=== PATIENT | female | born 1960 | race Caucasian/White ===

== ENCOUNTER 2020-10-18 09:36 | Inpatient (IN) | payer MEDICARE ==
[~2020-10-18] VITALS: Ht 154.9 cm; Wt 79.4 kg
--- NOTE | ~2020-10-18 | HEMODYNAMI ---
PATIENT:CASANDRA SAAVEDRA MEDICAL RECORD: [id number] : 64 [facility] [id number] ADMISSION DATE: 10/18/20 Generatedon:111:05 Patient name: CASANDRA SAAVEDRA Patient #: [id number] SSN: : 1960 Date of study: 10/24/2020 Page: Of Hemodynamic Procedure Report Patient Data Patient Demographics Procedure consent was obtained First Name: CASANDRA Gender: Female Last Name: KERI : 1960 Patient #: [id number] Age: 60 year(s) Race: Unknown Additional ID: [id number] Contact details [address]: [address] [place] [address] State: [place] City: [place] Zip code: [address] Past Medical History Allergies Allergen Reaction Date Comments Reported Other allergy 10/24/2020 metformin, diphenhydramine Admission Admission Data Admission Date: 10/18/2020 Admission Time: 12:08 Room #: .[facility] [place] Height (in.): 61 BSA: 1.78 (m2) Height (cm.): 154.94 BMI: 33.07 (kg/m2) Weight (lbs.): 175 Weight (kg.): 79.38 Procedure Procedure Types Cath Procedure Peripheral Cath Diagnostic Procedure Abd/Extremity Extremities Left Lower Ext Arterio Procedure Description Procedure Date Procedure Date: 10/24/2020 Procedure Start Time: 9:22 Procedure Staff Name Function Erik Koehler MD Performing Physician Apple Kennedy RT Infrastructure Tech Miguel MAN RN Nurse Guido Macias RT Scrub Procedure Data Cath Procedure Fluoroscopy Diagnostic fluoroscopy Total fluoroscopy Time: time: 16.2 min 16.2 min Diagnostic fluoroscopy Total fluoroscopy dose: 184 dose: 184 mGy mGy Contrast Material Contrast Material Type Amount (ml) Isovue 300 20 Entry Location Entry Primary Successful Side Size Upsize Upsize Entry Closure Succe ssful Closure Location (Fr) 1 (Fr) 2 (Fr) Remarks Device Remarks Femoral Perclose artery ProGlide Diagnostic catheters Device Type Used For End Catheter Placement DIAGNOSTIC IMT 5Fr Catheter ([id number]) Procedure Medications Medication Administration Route Dosage Lidocaine 1% added to field 20 Heparin Flush Bag added to field 2 bags (1000units/500ml NS) Fentanyl I.V. 50 mcg Versed I.V. 1 mg Fentanyl I.V. 25 mcg Versed I.V. 0.5 mg Fentanyl I.V. 25 mcg Versed I.V. 0.5 mg Fentanyl I.V. 25 mcg Versed I.V. 0.5 mg Heparin Bolus I.V. 3000 units Fentanyl I.V. 25 mcg Versed I.V. 0.5 mg Fentanyl I.V. 25 mcg Versed I.V. 0.5 mg Versed I.V. 0.5 mg Fentanyl I.V. 25 mcg Versed I.V. 0.5 mg Nitroglycerin IC/IA I.A. 300 mcg Fentanyl I.V. 25 mcg Versed I.V. 0.5 mg Heparin Bolus I.V. 1500 units Fentanyl I.V. 25 mcg Nitroglycerin IC/IA I.A. 200 mcg Fentanyl I.V. 50 mcg Versed I.V. 1 mg Hemodynamics Rest BSA: 1.78 (m2) O2 Consumption: Estimated: 173.67 (ml/min) O2 Consumption indexed : Estimated:97.57 (ml/min/m) Heart Rate: 76 (bpm) Snapshots Pre Cath Intra NCS Post Cath Vital Signs Time Heart Resp SPO2 etCO2 NIBP (mmHg) Rhythm Pain Sedation Rate (ipm) (%) (mmHg) Status Level (bpm) 9:03:01 64 17 100 41.2 157/91(129) NSR 0 (11) 10(A) , No pain 9:07:21 64 21 100 37.4 165/90(138) NSR 0 (11) 10(A) , No pain 9:11:42 63 46 100 36.6 161/89(139) NSR 0 (11) 10(A) , No pain 9:15:59 64 46 100 39 161/93(140) NSR 0 (11) 10(A) , No pain 9:20:20 69 27 100 39 173/88(128) NSR 0 (11) 9(A) , No pain 9:24:42 64 22 100 35.9 171/91(131) NSR 0 (11) 9(A) , No pain 9:28:58 71 70 100 31.3 158/91(130) NSR 0 (11) 9(A) , No pain 9:33:20 60 53 100 43.5 124/73(104) NSR 0 (11) 9(A) , No pain 9:37:26 74 15 95 0.7 138/85(118) NSR 0 (11) 9(A) , No pain 9:41:42 60 45 99 47.4 134/70(106) NSR 0 (11) 9(A) , No pain 9:45:53 62 68 99 43.5 133/76(100) NSR 0 (11) 9(A) , No pain 9:50:07 70 65 99 45.1 112/73(94) NSR 0 (11) 9(A) , No pain 9:54:13 68 70 100 41.2 127/74(111) NSR 0 (11) 9(A) , No pain 9:58:23 72 30 99 47.4 136/77(114) NSR 0 (11) 9(A) , No pain 10:02:33 69 14 100 42 140/83(97) NSR 0 (11) 9(A) , No pain 10:06:49 64 30 98 42 129/70(115) NSR 0 (11) 9(A) , No pain 10:11:03 68 12 99 40.5 120/68(99) NSR 0 (11) 9(A) , No pain 10:15:13 61 9 96 39.7 110/66(93) NSR 0 (11) 9(A) , No pain 10:19:21 75 6 97 16.8 102/64(86) NSR 0 (11) 9(A) , No pain 10:23:22 77 34 98 45.8 115/71(88) NSR 0 (11) 9(A) , No pain 10:27:30 75 48 99 47.4 134/75(113) NSR 0 (11) 9(A) , No pain 10:31:42 71 51 99 41.2 137/76(115) NSR 0 (11) 9(A) , No pain 10:35:56 72 41 99 42 120/77(106) NSR 0 (11) 9(A) , No pain 10:40:02 64 52 99 41.2 131/78(118) NSR 0 (11) 9(A) , No pain 10:44:14 69 40 99 36.7 132/80(114) NSR 0 (11) 9(A) , No pain 10:49:13 76 68 99 18.3 Measuring NSR 0 (11) 9(A) , No pain 10:49:15 71 68 98 9.1 144/89(125) NSR 0 (11) 9(A) , No pain 10:53:31 63 37 98 29 156/78(144) NSR 0 (11) 9(A) , No pain 10:57:47 66 66 98 42 127/76(118) NSR 0 (11) 9(A) , No pain 11:01:55 66 23 99 41.2 140/82(125) NSR 0 (11) 9(A) , No pain 11:05:11 62 54 100 42.8 152/82(136) NSR 0 (11) 9(A) , No pain Medications Time Medication Route Dose Verified Delivered Reason Notes Effectiveness by by 9:20:02 Lidocaine 1% added 20ml Erik Valencia for local to vial Zakia Koehler anesthetic field MD KRISHNAMURTHY 9:20:14 Heparin Flush added 2 Erik Valencia used for Bag to bags Zakia Koehler procedure (1000units/500ml field MD KRISHNAMURTHY NS) 9:25:02 Fentanyl I.V. 50 Erik Sterlingr for sedation mcg Zakia MAN MD, RN 9:25:10 Versed I.V. 1 mg Erik Sterlingr for sedation Zakia MAN MD, RN 9:27:01 Fentanyl I.V. 25 Erik Sterlingr for sedation mcg Zakia MAN MD, RN 9:27:06 Versed I.V. 0.5 Erik Sterlingr for sedation mg Zakia MAN MD, RN 9:29:18 Fentanyl I.V. 25 Erik Minner for sedation mcg Zakia MAN MD, RN 9:29:21 Versed I.V. 0.5 Erik Sterlingr for sedation mg Zakia MAN MD, RN 9:35:31 Fentanyl I.V. 25 Erik Minner for sedation mcg Zakia MAN MD, RN 9:35:36 Versed I.V. 0.5 Erik Minner for sedation mg Zakia MAN MD, RN 9:42:27 Heparin Bolus I.V. 3000 Erik Sterlingr for units Zakia MAN anticoagulation MD PACHECO 9:45:04 Fentanyl I.V. 25 Erik Minner for sedation mcg Zakia MAN MD, RN 9:45:07 Versed I.V. 0.5 Erik Minner for sedation mg Zakia MAN MD, RN 9:50:10 Fentanyl I.V. 25 Erik Minner for sedation mcg Zakia MAN MD, RN 9:50:14 Versed I.V. 0.5 Erik Minner for sedation mg Zakia MAN MD, RN 9:52:09 Versed I.V. 0.5 Erik Minner for sedation mg Zakia MAN MD, RN 10:01:19 Fentanyl I.V. 25 Erik Hallier for sedation mcg Zakia MAN MD, RN 10:01:22 Versed I.V. 0.5 Erik Hallier for sedation mg Zakia AMN MD, RN 10:09:15 Nitroglycerin I.A. 300 Erik Valencia for IC/IA mcg Zakia ballesteros MD, MD 10:11:22 Fentanyl I.V. 25 Erik Minner for sedation mcg Zakia MAN MD, RN 10:11:27 Versed I.V. 0.5 Erik Sterlingr for sedation mg Zakia MAN MD, RN 10:14:26 Heparin Bolus I.V. 1500 Erik Sterlingr for units Zakia MAN anticoagulation MD PACHECO 10:29:10 Fentanyl I.V. 25 Erik Sterlingr for sedation mcg Zakia MAN MD, RN 10:32:31 Nitroglycerin I.A. 200 Erik Valencia for IC/IA mcg Zakia ballesteros MD, MD 10:48:34 Fentanyl I.V. 50 Erik Sterlingr for sedation mcg Zakia MAN MD, RN 10:48:38 Versed I.V. 1 mg Erik Sterlingr for sedation Zakia MAN MD tube sizer and cutter operator Log Time Note 8:51:35 Patient Height : 61 inches 8:51:40 Patient Weight : 175 lbs 8:51:45 Use device set IR Diagnostic 8:51:54 Tegaderm 4 x 4 (1626W) opened to sterile field. 8:51:57 Sterile Angiographic Pack opened to sterile field. 8:52:01 Bag Decanter () opened to sterile field. 8:53:16 SHEATH 5FR [place] ([id number]) opened to sterile field. 8:53:17 STOPCOCK 3-Way Large Bore ([id number]) opened to sterile field. 8:53:20 A DIAGNOSTIC IMT 5Fr Catheter ([id number]) was advanced over the wire an d used for . 8:53:24 TUBING Contrast Injection High Pressure (QHB149D) opened to sterile field. 8:53:25 BENTSON 145cm wire ([id number]) opened to sterile field. 8:53:26 Micropuncture VSI 4FR kit opened to sterile field. 8:53:42 - 8:53:45 Time tracking: Regular hours (M-F 7:00 - 5:00) 8:54:00 Plan of Care:Hemodynamics will remain stable., Cardiac rhythm will remain stable., Comfort level will be maintained., Respiratory function will remain adequate., Patient/ family verbilizes understanding of procedure., Procedure tolerated without complication., Recovers from procedure without complications.. 8:54:10 Patient received from [facility] to Alert and oriented. Tansferred to table in Supine position. 8:54:14 Signed procedure consent form obtained from patient. 8:54:16 - 8:54:21 H&P Date Dictated: 10/24/2020 Within 30 days and on chart.. 8:54:26 Pre-procedure instructions explained to patient. 8:54:26 Pre-op teaching completed and patient verbalized understanding. 8:54:36 Family unavailable. 8:54:38 Patient NPO since Midnight. 8:55:23 Patient allergic to Other allergymetformin, diphenhydramine 8:55:26 ----Pre-sedation anethsthesia assessment.---- 8:55:30 Previous problem with sedation/anesthesia? No ? 8:55:36 Snore? Yes 8:55:46 Sleep apnea? No 8:55:51 Deviated septum? No 8:55:54 Opens mouth fully? Yes 8:55:56 Sticks out tongue? Yes 8:56:02 Airway obstruction? Yes heart stent 8:56:07 Dentures? No ? 8:56:08 - 8:56:36 Right groin area was prepped with chlora-prep and draped in sterile fashion 8:56:39 Alarms reviewed by Neda Smith 8:56:41 - 8:56:49 Fire Safety Assessment: A--An alcohol-based skin anteseptic being used preoperatively., C--Open oxygen or nitrous oxide is being used. 9:01:19 Pre procedure: left dorsailis pedis pulse 2+ Normal; easily identifiable; not easily obliterated 9::26 Pre procedure: left posterior tibial pulse 2+ Normal; easily identifiable; not easily obliterated 9:01:53 ECG and BP/O2 sat monitors applied to patient. 9:01:55 Vital chart was started 9:01:57 Baseline sample Acquired. 9:02:01 Baseline sample Acquired. 9:02:05 Full Disclosure recording started 9:02:13 - 9:02:58 Is the patient allergic to Iodine/contrast media? No. 9:03:01 Is patient on blood thinner?No 9:03:17 Patient diabetic? Yes. 9:03:19 If diabetic: On Metformin? No 9:14:07 4) 15-29 Severley reduced kidney function. 9:14:40 Maximum allowable contrast dose (3.7 X eGFR X 0.75)72 ml. 9:20:02 Lidocaine 1% 20ml vial added to field was administered by Erik villarreal MD; for local anesthetic; Verbal order read back and verified. 9:20:14 Heparin Flush Bag (1000units/500ml NS) 2 bags added to field was administered by Erik Koehler MD; used for procedure; Verbal order read back and verified. 9:21:51 Physician arrived 9::52 --------ALL STOP TIME OUT------ 9:21:53 Final Timeout: patient, procedure, and site verified with staff and physician. All members of the team are in agreement. 9:22:12 Procedure started. 9:22:16 Local anesthetic to right femoral artery with Lidocaine 1% by Erik Koehler MD.INITIAL ACCESS ONLY 9:22:20 Arterial access obtained using ultrasound guidance. 9:25:02 Fentanyl 50 mcg I.V. was administered by Miguel MAN RN; for sedation; Verbal order read back and verified. 9::10 Versed 1 mg I.V. was administered by Miguel MAN RN; for sedation; Verbal order read back and verified. 9:27:01 Fentanyl 25 mcg I.V. was administered by Miguel MAN RN; for sedation; Verbal order read back and verified. 9::06 Versed 0.5 mg I.V. was administered by Miguel MAN RN; for sedation; Verbal order read back and verified. 9:29:18 Fentanyl 25 mcg I.V. was administered by Miguel MAN RN; for sedation; Verbal order read back and verified. 9:29:21 Versed 0.5 mg I.V. was administered by Miguel MAN RN; for sedation; Verbal order read back and verified. 9:35:31 Fentanyl 25 mcg I.V. was administered by Miguel MAN RN; for sedation; Verbal order read back and verified. 9:35:36 Versed 0.5 mg I.V. was administered by Miguel MAN RN; for sedation; Verbal order read back and verified. 9:38:27 GLIDE WIRE ANGLE 260cm ([id number]) opened to sterile field. 9:38:28 ROADRUNNER .035 260 glide wire ([id number]) opened to sterile field. 9:39:59 CXI SUPPORT .035 135 CM STR catheter (N85939) opened to sterile field. 9:42:27 Heparin Bolus 3000 units I.V. was administered by Miguel MAN RN; fo r anticoagulation; Verbal order read back and verified. 9:45:04 Fentanyl 25 mcg I.V. was administered by Miguel MAN RN; for sedation; Verbal order read back and verified. 9:45:07 Versed 0.5 mg I.V. was administered by Miguel MAN RN; for sedation; Verbal order read back and verified. 9:50:06 CHOICE PT Extra Support J 300cm guide wire ([id number]) opened to steril e field. 9:50:10 Fentanyl 25 mcg I.V. was administered by Miguel MAN RN; for sedation; Verbal order read back and verified. 9:50:14 Versed 0.5 mg I.V. was administered by Miguel MAN RN; for sedation; Verbal order read back and verified. 9:50:21 GRAYSON 260 wire ([id number]) opened to sterile field. 9:50:22 INFLATOR BasixTOUCH (HO4087) opened to sterile field. 9:51:04 Cook RAABE 6FR. 90cm guide sheath opened to sterile field. 9:52:09 Versed 0.5 mg I.V. was administered by Miguel MAN RN; for sedation; Verbal order read back and verified. 9:57:12 Inflate balloon Inflation number: 1 A NANOCROSS ELITE 3.5MM-3MM X 210 X 150 ([id number]) was prepped and advanced across the Undefined1 , then inflated . 10:01:19 Fentanyl 25 mcg I.V. was administered by Miguel MAN RN; for sedation; Verbal order read back and verified. 10:01:22 Versed 0.5 mg I.V. was administered by Miguel MAN RN; for sedation; Verbal order read back and verified. 10:02:20 COPILOT Valve Control ([id number]) opened to sterile field. 10:09:15 Nitroglycerin IC/IA 300 mcg I.A. was administered by Erik Koehler MD; for vasodilation; Verbal order read back and verified. 10:10:32 Inflate balloon Inflation number: 1 A NANOCROSS 2.5 X 120 BALLOON ([id number]) was prepped and advanced across the Undefined2 , then inflated . 10:11:22 Fentanyl 25 mcg I.V. was administered by Miguel MAN RN; for sedation; Verbal order read back and verified. 10:11:27 Versed 0.5 mg I.V. was administered by Miguel MAN RN; for sedation; Verbal order read back and verified. 10:14:26 Heparin Bolus 1500 units I.V. was administered by Miguel MAN RN; fo r anticoagulation; Verbal order read back and verified. 10:22:56 [place] 1 Small Atherectomy catheter (H1S) opened to sterile field. 10:29:10 Fentanyl 25 mcg I.V. was administered by Miguel MAN RN; for sedation; Verbal order read back and verified. 10:32:31 Nitroglycerin IC/IA 200 mcg I.A. was administered by Erik Koehler MD; for vasodilation; Verbal order read back and verified. 10:48:34 Fentanyl 50 mcg I.V. was administered by Miguel MAN RN; for sedation; Verbal order read back and verified. 10:48:38 Versed 1 mg I.V. was administered by Miguel MAN RN; for sedation; Verbal order read back and verified. 10:57:24 A sheath was inserted into the Femoral artery 10:57:24 Sheath removed intact; hemostasis achieved with Perclose ProGlide to th e Femoral artery. 10:57:48 PERCLOSE Proglide 6FR ( [id number]) opened to sterile field. 11:00:47 Procedure ended.(Physican Out) 11:01:09 Fluoroscopy time 16.20 minutes. 11:01:14 Fluoroscopy dose: 184 mGy 11:01:14 Flurop Dose total: 184 11:01:43 Contrast amount:Isovue 300 20ml. 11:01:45 Procedure and supply charges have been captured, reviewed, submitted an d are correct. 11:03:17 Report given to Med II. 11:05:57 Vital chart was stopped Intervention Summary Intervention Notes Time ActionType Lesion and Equipment Used Action# Pressure Duration Attributes 9:57:12 Inflate Undefined1 NANOCROSS ELITE 1 0 00:00 balloon 3.5MM-3MM X 210 X 150 ([id number]) 10:10:32 Inflate Undefined2 NANOCROSS 2.5 X 1 0 00:00 balloon 120 BALLOON ([id number]) Device Usage Item Name Manufacture Quantity Catalog Number Hospital Part Current Minimal Lot# / Charge Number Stock Stock Serial# Code Tegaderm 4 x 4 3M 1 1626W [id number] [id number] 5 (1626W) Sterile Cardinal 1 [id number] 784416 427517 5 Angiographic Health Pack Bag Decanter Microtek 1 2001S 702150 11867 980722 5 (2001S) Medical Inc. SHEATH 5FR Terumo 1 OFO756 781839 921244 170188 5 [place] (GZW298) STOPCOCK 3-Way Cook Medical 1 E24231 480631 3543 395559 5 [id number] Large Bore (A83847) DIAGNOSTIC IMT [place] 1 [id number] 617978 689925 08655 5 5Fr Catheter Scientific (832556948) TUBING Contrast Merit 1 [id number] 106035 010744 504562 5 Injection High Medical Pressure (IAY548M) BENTSON 145cm Cook Medical 1 M10957 212928 490486 5 wire (V93467) Micropuncture VSI VASCULAR 1 7266V 996088 145125 5 VSI 4FR kit SOLUTIONS GLIDE WIRE Terumo 1 PL1585 279971 363139 633629 5 ANGLE 260cm (BL2642) ROADRUNNER .035 Cook Medical 1 Y83065 727142 264429 886700 5 [id number] 260 glide wire (C15184) CXI SUPPORT Cook Medical 1 Y47961 498150 353541 692413 5 [id number] .035 135 CM STR catheter (B45606) CHOICE PT Extra [place] 1 [id number] 3601858 243835 536068 5 Support J 300cm Scientific guide wire ([id number]) GRAYSON 260 wire [facility] 1 X00508 824519 066350 479805 5 [id number] (H20722) INFLATOR Merit 1 NY0776 866157 132332 920610 5 PerspecSys (YY5829) Cook RAABE 6FR. [facility] 1 N14517 860698 554578 5 90cm guide sheath NANOCROSS ELITE Medtronic 1 [id number] 791651 0609686 1 3.5MM-3.MM X 210 X 150 ([id number] COPILOT Valve Denise 1 0214483 930636 886599 656138 5 Control Vascular (0805247) NANOCROSS 2.5 X Medtronic 1 [id number] 634395 612898 039596 1 120 BALLOON ([id number] [place] 1 Medtronic 1 H1-S 366492 8333392 628894 5 Small Atherectomy catheter (H1S) PERCLOSE Denise 1 87423-190 618378 449422 451037 5 Proglide 6FR ( Vascular [id number]) Signature Audit [place] Stage Time Signature Unsigned Intra-Procedure 10/24/2020 Apple Kennedy 11:05:53 AM RT(R) [place] [address] [place] [address]
[2020-10-18 10:03] LABS: BASOPHILS 0.2 % (0-2); EOSINOPHILS 1.1 % (0-7); HEMATOCRIT 31.6 % (36.0-48.0); HEMOGLOBIN 9.9 g/dL (12-16); IMMATURE GRANULOCYTES 0.4 % (0-5); LYMPHOCYTE ABS# 1.47 10x3/uL (1.18-3.74); LYMPHOCYTES 13.8 % (15-50); MCHC 31.3 g/dL (31.0-37.0); MCV 89.3 fL (80.0-100.0); MEAN PLATELET VOLUME 8.5 fL (7.4-10.4); MONOCYTES 9.8 % (2-11); NEUTROPHIL ABS# 7.93 10x3/uL (1.56-6.13); NEUTROPHILS 74.7 % (40-80); PLATELET COUNT 268 10x3/uL (130-400); RBC 3.54 10x6/uL (4.00-5.40); RDW 15.7 % (11.5-14.5); WBC 10.6 10x3/uL (4.8-10.8)
[2020-10-18 10:10] LABS: CARBON DIOXIDE 21.8 mmol/L (21.0-32.0); CREATININE - SERUM 4.2 mg/dL (0.6-1.3); POTASSIUM - SERUM 4.8 mmol/L (3.5-5.1)
[2020-10-18 10:16] LABS: ALBUMIN 2.8 g/dL (3.4-5.0); PROTEIN - SERUM 6.5 g/dL (6.4-8.2)
[2020-10-18 10:17] LABS: BILIRUBIN - TOTAL 0.03 mg/dL (0.2-1.3)
[2020-10-18 10:57] LABS: TROPONIN-I 0.563 ng/mL (0.000-0.060)
[2020-10-18] MEDS ORDERED: SODIUM BICARBO650 MG PO (13:34)
[2020-10-18] MEDS ORDERED: NORVASC10 MG PO (13:35)
[2020-10-18] MEDS ORDERED: LOW DOSE ASPIRI81 M1 PO (13:35)
[2020-10-18] MEDS ORDERED: OMEPRAZOLE20 M1 PO (13:36)
[2020-10-18] MEDS ORDERED: METOPROLOL TART50 MG PO (13:36)
[2020-10-18] MEDS ORDERED: BUSPAR 15 MG TA15 MG PO (13:37)
[2020-10-18] MEDS ORDERED: AMBIEN10 MG PO (13:37)
[2020-10-18] MEDS ORDERED: GABAPENTIN100 MG PO (13:38)
[2020-10-18] MEDS ORDERED: BACLOFEN10 MG PO (13:38)
[2020-10-18] MEDS ORDERED: LIPITOR40 MG PO (13:39)
[2020-10-18] MEDS ORDERED: GLIMEPIRIDE4 MG PO (13:39)
[2020-10-18] MEDS ORDERED: CLONIDINE HCL0.1 MG PO (13:40)
[2020-10-18] MEDS ORDERED: ZOLOFT100 MG PO (13:40)
[2020-10-18] MEDS ORDERED: HYDRALAZINE HCL25 MG PO (13:42)
[2020-10-18 13:49] VITALS: BP 104/62; BMI 33.1
[2020-10-18 16:14] LABS: CKMB 2.4 U/L (0.0-3.6); CREATINE KINASE 50 UL (21-215)
[2020-10-18 16:17] LABS: TROPONIN-I 0.577 ng/mL (0.000-0.060)
[2020-10-18 16:47] VITALS: BP 137/56
[2020-10-18 21:07] VITALS: BP 103/66
[2020-10-18 22:58] LABS: CKMB 1.5 U/L (0.0-3.6); CREATINE KINASE 42 UL (21-215); TROPONIN-I 0.522 ng/mL (0.000-0.060)
[2020-10-19 01:24] VITALS: BP 131/89
[2020-10-19 05:08] LABS: BASOPHILS 0.3 % (0-2); EOSINOPHILS 2.2 % (0-7); HEMOGLOBIN 9.8 g/dL (12-16); IMMATURE GRANULOCYTES 0.2 % (0-5); LYMPHOCYTE ABS# 2.14 10x3/uL (1.18-3.74); LYMPHOCYTES 21.4 % (15-50); MCH 27.7 pg (26.0-34.0); MCHC 30.6 g/dL (31.0-37.0); MCV 90.4 fL (80.0-100.0); MEAN PLATELET VOLUME 9.3 fL (7.4-10.4); NEUTROPHIL ABS# 6.51 10x3/uL (1.56-6.13); NEUTROPHILS 64.9 % (40-80); PLATELET COUNT 274 10x3/uL (130-400); RBC 3.54 10x6/uL (4.00-5.40); RDW 15.8 % (11.5-14.5)
[2020-10-19 05:50] LABS: CARBON DIOXIDE 20.4 mmol/L (21.0-32.0); CHLORIDE - SERUM 112 mmol/L (98-107); CKMB 1.5 U/L (0.0-3.6); CREATINE KINASE 37 UL (21-215); CREATININE - SERUM 3.8 mg/dL (0.6-1.3); PHOSPHOROUS 5.3 mg/dL (2.5-4.9); SODIUM 142 mmol/L (136-145); UREA NITROGEN 95 mg/dL (7-18); VANCOMYCIN - RANDOM 15.4 ug/mL (10.0-20.0); eGFR NON AFRICAN AMERICAN 13 mL/min (90-120)
[2020-10-19 05:51] LABS: CALC OSMOLALITY 311 mosm/kg (275-300); GLUCOSE 99 mg/dL (74-106); POTASSIUM - SERUM 5.6 mmol/L (3.5-5.1)
--- NOTE | 2020-10-19 06:02 | NUR ---
PTS ONLY C/O DURING THE NIGHT WAS A HEADACHE, DENIES DIFFICULTY URINATING. UA REORDERED THIS AM, DID NOT SHOW IT WAS NEEDED UNTIL CHART AUDIT. EDUCATED PT TO PROVIDE SAMPLE.
[2020-10-19 06:14] VITALS: BP 130/75
[2020-10-19 08:07] VITALS: BP 137/73
--- NOTE | 2020-10-19 09:30 | NUR ---
16 FR ALVARADO CATH INSETED WITH 10CC BULB FOR C/O URINARY RETENTION. OP CLEAR AND YELLOW.
[2020-10-19 09:58] LABS: BILIRUBIN NEGATIVE (NEGATIVE); KETONE NEGATIVE (NEGATIVE); NITRITE NEGATIVE (NEGATIVE); UROBILINOGEN NORMAL mg/dL (< 2)
[2020-10-19 09:59] LABS: BACTERIA FEW HPF (NONE SEEN); SQUAMOUS EPITHELIAL 0-5 HPF (0-4); TALC POWDER CRYSTALS 0-5 HPF (NONE SEEN); WHITE CELLS - URINE RARE HPF (0-4)
--- NOTE | 2020-10-19 11:00 | NUR ---
URINE SPECIMEN COLLECTED AND TAKEN TO LAB. WILL MONITOR.
[2020-10-19 15:19] VITALS: BP 139/75
[2020-10-19 19:00] VITALS: BP 136/79
--- NOTE | 2020-10-19 20:32 | NUR ---
INITIAL ROUNDS AND ASSESSMENT COMPLETED. PT RESTING IN BED. ALERT/ORIENTED. LEFT FOOT CELLULITIS TOES LIGHT RED, TRACE TO 1+ EDEMA TO LEFT FOOT. NONLABORED RESPIRATIONS ON ROOM AIR. SR PER TELEMETRY. ALVARADO PATENT TO BEDSIDE DRAINAGE. PIV TO RIGHT HAND AND RFA BOTH SALINE LOCKED. CALL LIGHT IN REACH.
[2020-10-20 04:00] VITALS: BP 138/77
--- NOTE | 2020-10-20 04:22 | NUR ---
MEDICATED WITH TYLENOL FOR C/O HEADACHE. PT STATES SHE OFTEN HAS HEADACHES WITH NO KNOWN REASON.
[2020-10-20 05:43] LABS: BASOPHILS 0.2 % (0-2); EOSINOPHILS 3.2 % (0-7); HEMATOCRIT 31.8 % (36.0-48.0); HEMOGLOBIN 9.9 g/dL (12-16); IMMATURE GRANULOCYTES 0.2 % (0-5); LYMPHOCYTE ABS# 1.69 10x3/uL (1.18-3.74); LYMPHOCYTES 20.1 % (15-50); MCH 27.8 pg (26.0-34.0); MCHC 31.1 g/dL (31.0-37.0); MCV 89.3 fL (80.0-100.0); MEAN PLATELET VOLUME 8.9 fL (7.4-10.4); MONOCYTES 13.1 % (2-11); NEUTROPHIL ABS# 5.31 10x3/uL (1.56-6.13); NEUTROPHILS 63.2 % (40-80); PLATELET COUNT 300 10x3/uL (130-400); RBC 3.56 10x6/uL (4.00-5.40); RDW 15.3 % (11.5-14.5); WBC 8.4 10x3/uL (4.8-10.8)
[2020-10-20 06:18] LABS: ANION GAP 12.6 mmol/L (8-16); CALCIUM 8.6 mg/dL (8.5-10.1); CREATININE - SERUM 2.6 mg/dL (0.6-1.3); POTASSIUM - SERUM 4.6 mmol/L (3.5-5.1); VANCOMYCIN - RANDOM 19.9 ug/mL (10.0-20.0)
[2020-10-20 07:00] VITALS: BP 135/69
--- NOTE | 2020-10-20 08:10 | NUR ---
PT RECEIVED AWAKE AND ALERT ON SIDE OF BED. NO NEEDS AT PRESENT. DR PITT IN ROOM ROUNDING.
[2020-10-20 11:00] VITALS: BP 137/77
[2020-10-20 12:59] VITALS: Ht 154.9 cm; Wt 79.4 kg
[2020-10-20 15:00] VITALS: BP 126/68
--- NOTE | 2020-10-20 19:30 | NUR ---
PT SITTING UP IN BED WITHOUT DISTRESS, AOX4. DENIES NEEDS AT THIS TIME. CL IN REACH
[2020-10-20 21:06] VITALS: BP 169/46
[2020-10-20 23:29] VITALS: BP 140/63
[2020-10-21 04:19] LABS: BASOPHILS 0.3 % (0-2); EOSINOPHILS 3.8 % (0-7); HEMATOCRIT 29.2 % (36.0-48.0); HEMOGLOBIN 9.2 g/dL (12-16); IMMATURE GRANULOCYTES 0.1 % (0-5); LYMPHOCYTE ABS# 1.77 10x3/uL (1.18-3.74); LYMPHOCYTES 24.8 % (15-50); MCH 27.9 pg (26.0-34.0); MCHC 31.5 g/dL (31.0-37.0); MCV 88.5 fL (80.0-100.0); MEAN PLATELET VOLUME 8.5 fL (7.4-10.4); MONOCYTES 15.7 % (2-11); NEUTROPHIL ABS# 3.94 10x3/uL (1.56-6.13); NEUTROPHILS 55.3 % (40-80); PLATELET COUNT 252 10x3/uL (130-400); RDW 14.9 % (11.5-14.5); WBC 7.1 10x3/uL (4.8-10.8)
[2020-10-21 04:54] LABS: ANION GAP 10.3 mmol/L (8-16); CALCIUM 8.4 mg/dL (8.5-10.1); CARBON DIOXIDE 25.5 mmol/L (21.0-32.0); CREATININE - SERUM 2.1 mg/dL (0.6-1.3); PHOSPHOROUS 4.2 mg/dL (2.5-4.9); POTASSIUM - SERUM 4.8 mmol/L (3.5-5.1); VANCOMYCIN - RANDOM 22.9 ug/mL (10.0-20.0)
--- NOTE | 2020-10-21 05:30 | NUR ---
PT LYING IN BED SLEEPING WITHOUT DISTRESS, DENIES NEEDS OR PAIN WHEN WOKEN. CL IN REACH
[2020-10-21 07:00] VITALS: BP 168/86
--- NOTE | 2020-10-21 11:34 | NUR ---
CALL INTO [facility] APN FOR RENAL R/T ALVARADO CATH. NEW ORDERS.
[2020-10-21 12:00] VITALS: BP 173/78
[2020-10-21 15:00] VITALS: BP 147/77
[2020-10-21 19:00] VITALS: BP 191/101
[2020-10-21 20:16] LABS: CREATININE - URINE 44.9 mg/dL (30-125); PRO/CRE RATIO URINE 4.1 mg/g; PROTEIN - URINE 183.8 mg/dL (0.0-11.9)
[2020-10-22 04:00] VITALS: BP 120/68
[2020-10-22 05:26] LABS: BASOPHILS 0.5 % (0-2); EOSINOPHILS 4.4 % (0-7); HEMATOCRIT 28.6 % (36.0-48.0); IMMATURE GRANULOCYTES 0.2 % (0-5); LYMPHOCYTE ABS# 1.82 10x3/uL (1.18-3.74); LYMPHOCYTES 28.8 % (15-50); MCH 27.7 pg (26.0-34.0); MCHC 31.5 g/dL (31.0-37.0); MEAN PLATELET VOLUME 8.7 fL (7.4-10.4); MONOCYTES 14.4 % (2-11); NEUTROPHIL ABS# 3.28 10x3/uL (1.56-6.13); NEUTROPHILS 51.7 % (40-80); PLATELET COUNT 243 10x3/uL (130-400); RBC 3.25 10x6/uL (4.00-5.40); RDW 14.7 % (11.5-14.5); WBC 6.3 10x3/uL (4.8-10.8)
[2020-10-22 05:40] LABS: ANION GAP 10.1 mmol/L (8-16); CALCIUM 8.5 mg/dL (8.5-10.1); CARBON DIOXIDE 24.6 mmol/L (21.0-32.0); CREATININE - SERUM 1.9 mg/dL (0.6-1.3); PHOSPHOROUS 4.4 mg/dL (2.5-4.9); POTASSIUM - SERUM 4.7 mmol/L (3.5-5.1); VANCOMYCIN - RANDOM 14.6 ug/mL (10.0-20.0)
[2020-10-22 08:32] VITALS: BP 167/83
[2020-10-22 12:08] VITALS: BP 152/67
--- NOTE | 2020-10-22 12:27 | NUR ---
Nutrition Follow-up: Eating well. Diet: Renal ADA PO intake: 100% x 3 yesterday No new wt; last wt: 175# (10/20) Labs noted: K+ 4.7, BUN 39, Cre 1.9, GFR 29, Glu 94, PO4 4.4 Meds noted: Amaryl, Humalog, Nephrovite, Florajen -RD will follow up within 7 days if pt still admitted.
[2020-10-22 17:09] VITALS: BP 160/86
[2020-10-22 20:00] VITALS: BP 143/73
[2020-10-22 22:37] VITALS: BP 116/69
[2020-10-23 03:00] VITALS: BP 113/54
[2020-10-23 06:48] LABS: BASOPHILS 0.3 % (0-2); EOSINOPHILS 4.1 % (0-7); HEMATOCRIT 29.3 % (36.0-48.0); IMMATURE GRANULOCYTES 0.2 % (0-5); LYMPHOCYTE ABS# 1.61 10x3/uL (1.18-3.74); LYMPHOCYTES 25.5 % (15-50); MCH 27.6 pg (26.0-34.0); MCHC 30.7 g/dL (31.0-37.0); MCV 89.9 fL (80.0-100.0); MEAN PLATELET VOLUME 9.2 fL (7.4-10.4); MONOCYTES 12.8 % (2-11); NEUTROPHIL ABS# 3.61 10x3/uL (1.56-6.13); NEUTROPHILS 57.1 % (40-80); PLATELET COUNT 275 10x3/uL (130-400); RBC 3.26 10x6/uL (4.00-5.40); RDW 14.7 % (11.5-14.5); WBC 6.3 10x3/uL (4.8-10.8)
[2020-10-23 07:08] LABS: % SATURATION 17 % (15-55); IRON 34 ug/dl (35-150); TOTAL IRON BIND CAPACITY 197 ug/dl (260-445); UNSAT IRON BIND CAPACITY 163 ug/dl (150-375)
[2020-10-23 07:25] LABS: ANION GAP 13.8 mmol/L (8-16); CALCIUM 8.7 mg/dL (8.5-10.1); CARBON DIOXIDE 23.2 mmol/L (21.0-32.0); PHOSPHOROUS 4.8 mg/dL (2.5-4.9); VANCOMYCIN - RANDOM 18.4 ug/mL (10.0-20.0)
[2020-10-23 07:55] VITALS: BP 163/81
[2020-10-23 11:45] VITALS: BP 145/74
[2020-10-23 15:15] VITALS: BP 140/72
--- NOTE | 2020-10-23 19:30 | NUR ---
PT IN BED, AAO X 4, RESP EVEN AND UNLABORED, NO DISTRESS NOTED,CL I REACH, SR UP X 2.
[2020-10-23 20:17] VITALS: BP 164/71
[2020-10-24] VITALS (12 sets, daily range): BP systolic 116–158; BP diastolic 63–96
[2020-10-24 05:04] LABS: BASOPHILS 0.6 % (0-2); HEMATOCRIT 33.4 % (36.0-48.0); HEMOGLOBIN 10.3 g/dL (12-16); IMMATURE GRANULOCYTES 0.4 % (0-5); LYMPHOCYTE ABS# 1.68 10x3/uL (1.18-3.74); LYMPHOCYTES 23.3 % (15-50); MCH 28.2 pg (26.0-34.0); MCHC 30.8 g/dL (31.0-37.0); MCV 91.5 fL (80.0-100.0); MEAN PLATELET VOLUME 9.6 fL (7.4-10.4); MONOCYTES 10.1 % (2-11); NEUTROPHIL ABS# 4.45 10x3/uL (1.56-6.13); NEUTROPHILS 61.6 % (40-80); RBC 3.65 10x6/uL (4.00-5.40); RDW 14.8 % (11.5-14.5); WBC 7.2 10x3/uL (4.8-10.8)
[2020-10-24 05:05] LABS: PLATELET COUNT 339 10x3/uL (130-400)
[2020-10-24 05:16] LABS: INR 0.98 (0.85-1.17)
[2020-10-24 05:17] LABS: APTT 55.5 SECONDS (22.8-39.4)
[2020-10-24 05:26] LABS: ANION GAP 15.5 mmol/L (8-16); CALCIUM 8.8 mg/dL (8.5-10.1); CARBON DIOXIDE 23.5 mmol/L (21.0-32.0); CREATININE - SERUM 2.1 mg/dL (0.6-1.3); VANCOMYCIN - RANDOM 21.9 ug/mL (10.0-20.0)
--- NOTE | 2020-10-24 07:40 | NUR ---
LYING IN BED, AWAKE/ALERT/ORIENTED, T/R SELF AD DYLAN, CONT OF B/B WITH BRPs PER SELF AD DYLAN, DENIES PAIN/OTHER DISCOMFORT AT THIS TIME, CALL LIGHT/PHONE/NPO WITHIN REACH, NO S/S OF ACUTE DISTRESS OBSERVED,.
--- NOTE | 2020-10-24 08:00 | NUR ---
OFF UNIT FOR PROCEDURE
--- NOTE | 2020-10-24 09:58 | EC ---
PATIENT:CASANDRA SAAVEDRA DATE OF SERVICE: 10/18/20 SEX: F MEDICAL RECORD: [id number] DATE OF : 64 LOCATION:D. D.211 AGE OF PATIENT: 60 ADMISSION DATE: 10/18/20 REFERRING PHYSICIAN: INTERPRETING PHYSICIAN: GILES LUEVANO MD ECHOCARDIOGRAM REPORT ECHO CHARGES 4 ECHO COMPLETE Date: 10/18/20 CLINICAL DIAGNOSIS: CP, INCREASED TROP ECHOCARDIOGRAPHIC MEASUREMENTS (adult normal given) AC root (d.<3.7cm) 3.0 cm LV Septum d (<1.2 cm> 1.1 cm Valve Excursion 1.4 cm LV Septum (systole) 1.6 cm Left Atria (s.<4.0cm> 4.6 cm LVPW d(<1.2cm) 1.0 cm RV (d.<2.3cm) 2.7 cm LVPW (sytole) 1.6 cm LV diastole(<5.6CM) 5.1 cm MV E-F(>70mm/sec) cm LV systole 3.5 cm LVOT Diameter 1.8 cm MV exc.(>10mm) 1.3 cm Est.ejection fraction (50-75%) % DOPPLER: LVIT cm/sec A 148 cm/sec E 115 cm/sec LA cm/sec RVSP 39 mmHg LVOT 152 cm/sec AOP1/2T m/s Asc. Ao 201 cm/sec RVOT 89 cm/sec RA cm/sec PA 94 cm/sec AV Gradient Peak 16.1 mmHg AV Mean 8.1 mmHg AV Area 2.2 cm MV Gradient Peak 10.1 mmHg MV Mean 4.3 mmHg MV Area cm COMMENTS: Sole Polisher: Alize HARVEY Rotary Driller Helper: Joann Gates TAPE# Pericardial Effusion N DATE OF SERVICE: Adequate 2D, color-flow imaging, spectral Doppler, and M-Mode FINDINGS: No LVH. LV internal dimension is normal. Wall motion is normal. EF greater than or equal to 55%. Aortic valve is tricuspid. No evidence of stenosis by Doppler interrogation. Left atrium is dilated at 4.6 cm. Mitral valve shows no prolapse. Trace MR. Right side is grossly normal Trace TR. TRANSINT:[id number] Voice Confirmation ID: [id number] DOCUMENT ID: [id number] ECHOCARDIOGRAM REPORT [id number] CASANDRA SAAVEDRA GILES LUEVAON MD at 0958 CC: [id number] DICTATION DATE: 10/22/20 1153 IRRIGATION WORKER: 10/22/20 1300 ADM IN [place] [id number] [place] [id number]
--- NOTE | 2020-10-24 11:20 | NUR ---
RETURNED TO UNIT, LYING FLAT IN BED WITH RT LEG ELEVATED INSTRUCTED, AWAKE/ALERT/ORIENTED, T/R SELF WITH ASSIST AD DYLAN, CONT OF B/B WITH BRPs WITH ASSIST AD DYLAN, DENIES PAIN/OTHER DISCOMFORT AT THIS TIME, CALL LIGHT/PHONE/WATER WITHIN REACH, LUNCH TRAY ORDERED, NO S/S OF ACUTE DISTRESS OBSERVED.
--- NOTE | 2020-10-24 15:30 | NUR ---
NO LONGER REQUIRED TO LIE FLAT WITH LEG ELEVATED, NO BLEEDING TO GROIN OBSERVED, DENIES PAIN AT THIS TIME, DRESSING TO LEFT FOOT C/D/I, NO S/S OF ACUTE DISTRESS OBSERVED.
--- NOTE | 2020-10-24 20:00 | NUR ---
INITIAL ROUNDS AND ASSESSMENT COMPLETED. PT RESTING IN BED. NONLABORED RESPIRATIONS ON ROOM AIR. SR PER TELEMETRY. NO DISTRESS. CALL LIGHT IN REACH.
--- NOTE | 2020-10-24 21:24 | NUR ---
BEDTIME MEDS GIVEN. REQUESTED AMBIEN FOR SLEEP GIVEN. FSBS 139. PT RESTING. NO DISTRESS. IVF INFUSING.
[2020-10-25 01:04] VITALS: BP 111/63
--- NOTE | 2020-10-25 02:15 | NUR ---
IV ABT UP AND INFUSING. PT RESTING WITH NO DISTRESS. CALL LIGHT IN REACH.
[2020-10-25 05:45] LABS: VANCOMYCIN - RANDOM 16.5 ug/mL (10.0-20.0)
[2020-10-25 05:47] VITALS: BP 133/77
[2020-10-25 08:29] VITALS: BP 150/78
--- NOTE | 2020-10-25 09:07 | NUR ---
PT AWAKE AND ORIETNED, SITTING UP IN BED EATING BREAKFAST. TOOK ALL MEDICATIONS WITHOUT COMPLICATIONS. NO COMPLAINTS OR CONCERNS AT THIS TIME. REQUESTING TO D/C TODAY. SPOKE WITH RENAL MANUFACTURING SUPERVISOR 2ND SHIFT, CLEAR TO D/C FROM RENAL STANDPOINT PER MANUFACTURING SUPERVISOR 2ND SHIFT. CL IN REACH, SRX1.
[2020-10-25] MEDS ORDERED: PLAVIX75 MG PO (09:13)
[2020-10-25] MEDS ORDERED: FLOMAX0.4 MG PO (09:13)
[2020-10-25] MEDS ORDERED: METOPROLOL TART50 MG PO (09:14)
[2020-10-25] MEDS ORDERED: CRESTOR10 MG PO (09:16)
[2020-10-25] MEDS ORDERED: GLIMEPIRIDE2 MG PO (09:17)
[2020-10-25] MEDS ORDERED: NEPHRO-VITE RX1 TAB PO (09:18)
--- NOTE | 2020-10-25 10:50 | NUR ---
PT STATES DAUGHTER WILL ARRIVE SHORTLY TO PICK HER UP. IV OUT TIP INTACT. D/C PAPERWORK SIGNED. TELEMETRY REMVOED.
--- NOTE | 2020-10-25 12:11 | MORECARE ---
CASE MANAGEMENT DISCHARGE SUMMARY PATIENT: CASANDRA SAAVEDRA UNIT: [id number] ADM DATE: 10/18/20 AGE: 60 : 64 SEX: F ROOM/BED: D.2112 AUTHOR: DERRICK SAMUELS PHYSICIAN: REFERRING PHYSICIAN: EVER MONTANO MD DATE OF SERVICE: 10/25/20 Case Management Discharge Planning Summary CT Patient Name: CASANDRA SAAVEDRA Attending MD : Ever Mao Medical Record: [id number] Encounter : [id number] Facility : [id number] [place] [address] Admission Date : 112:08 Center Discharge Date : [address] [place] [address] Date of : DC Plan ID : [id number] Age/Sex/Martia : 60/ F/X Printed on : 10/25/20 12:10 CT DCP Review Details Anticipated D/C: 10/25/2020 Expected LOS : 7 Case Status : COMPLET - Initial Reviewe: [id number] Nancy Aguilar Initial Review: 10/25/2020 Planned Disposi: 01 - Home or Self Care (Routine Discharge) Final Discharge: 01 - Home or Self Care (Routine Discharge) Final Reviewer : : Final Review : DCP Focus Questions & Answers [facility] CASANDRA SAAVEDRA MR#: [id number] /Age/Sex/Wdjqsv25-Ppw-18 /60/F /X Attending Physician Name: Ihsan Montano [id number] Patient Account:[id number] [facility] Page -1 of 1 All edits/amendments must be made on the electronic document DICTATION DATE: 10/25/201209 MARKETING FINANCIAL ANALYST: DM 10/25/20 1210 RPT#: [id number] DC DATE: STATUS: ADM IN [facility] [address] [place] [address] END OF REPORT
--- NOTE | 2020-10-25 12:25 | MORECARE ---
CASE MANAGEMENT DISCHARGE SUMMARY PATIENT: CASANDRA SAAVEDRA UNIT: [id number] ADM DATE: 10/18/20 AGE: 60 : 64 SEX: F ROOM/BED: D.5073 AUTHOR: DERRICK SAMUELS PHYSICIAN: REFERRING PHYSICIAN: EVER MONTANO MD DATE OF SERVICE: 10/25/20 Case Management Discharge Planning Summary CT Patient Name: CASANDRA SAAVEDRA Attending MD : Ever Mao Medical Record: [id number] Encounter : [id number] Facility : [address] [place] [address] Medical Admission Date : 112:08 Center Discharge Date : [address] [place] [address] Date of : DC Plan ID : [id number] Age/Sex/Martia : 60/ F/X Printed on : 10/25/20 12:24 CT DCP Review Details Anticipated D/C: 10/25/2020 Expected LOS : 7 Case Status : COMPLET - Initial Reviewe: [id number] - Marquita Aguilar Initial Review: 10/25/2020 Planned Disposi: 01 - Home or Self Care (Routine Discharge) Final Discharge: 01 - Home or Self Care (Routine Discharge) Final Reviewer : [id number] : Marquita Aguilar Final Review : 10/25/[address] Entered Date Type Reviewer 10/25/20 12:15 CT Discharge Planning Marquita Aguilar Comment CM met with patient to complete DC plan and needs. Patient lives at home alone and is independent with ADLs. Patient declined HHS, SNF, IPR, and DME. Patient voiced no other needs at this time and is satisfied with DC plan. Her daughter, Meagan Trejo ([phone]) will provide transport home. DC IMM delivered, explained, signed by the patient, and placed in chart. CM will continue to follow and will assist as needed with dc plans/needs. DCP Focus Questions & Answers DCP Evaluation Patient and/or caregiver agree upon recommended Yes discharge plan? Family / Caregiver's ability to cope with chronic a. Adequate (ability to meet patient's illness: medical needs, ensures patient attends medical appts.) Patient's current cognitive status: *Oriented to person, place, situation, time and present Patient's ability to cope with chronic illness d. No chronic illness Does the patient have the ability to pay for or Yes attain post discharge needs / services? Functional screen assessment: Basic needs can adequately be met by self Physical Status: Independent with ADL's Equipment needed for post hospitalization: Cane - Single Leg Is there a likelihood that the patient will No require additional services to return to the preadmission environment? Living Arrangements: Home with others Results of this evaluation have been discussed Patient with: Patient with capacity for self-care or can be Yes cared for in same environment as prior to hospitalization? Baseline cognitive status: *Oriented to person, place, situation, time and present Physical environment modification needed / No anticipated for discharge: Medication Management: Patient states can afford medications Planned post hospital services available for N/A patient? Pharmacy name(s): [facility] Planned post hospital services covered by N/A insurance plan? Does Patient have transportation to get home and Yes to follow-up medical appointments when discharged from the hospital? Would patient like to participate in any Care Not applicable Coordination programs (if applicable): Comments: Transportation home provided by daughter Meagan Trejo Does the patient have electricity at home? Yes Does the patient have running water in their Yes house? Equipment in use: Cane - Single Leg Other Equipment comments: Pt reports occasional use of cane at home. Mental health screen: No mental health history Abuse/Neglect: None Resources / Services in place: None Contact information for resources in use: N/A Problems identified by the patient regarding None discharge: DCP Re-evaluation Would patient like to participate in any Care Not applicable Coordination programs (if applicable): [facility] CASANDRA SAAVEDRA MR#: [id number] /Age/Sex/Kmzmqo91-Qou-37 //F /X Attending Physician Name: Ihsan Montano [id number] Patient Account:[id number] [facility] Page -1 of 1 All edits/amendments must be made on the electronic document DICTATION DATE: 10/25/201223 PUBLIC HEALTH PROFESSOR: JULIO CESAR 10/25/201223 RPT#: [id number] DC DATE: STATUS: ADM IN [facility] [address] [place] [address] END OF REPORT
--- NOTE | 2020-10-25 12:35 | NUR ---
PT ESCORTED OUT VIA WHEELCHIAR TO POV, DAUGHTER DRIVING.
== END 2020-10-25 12:36 | disposition home or self-care (01) | DRG 982 ==
LOC: D.ER 09:36 → D.M2 12:08
PROVIDERS: Family Medicine; Internal Medicine Nephrology; Radiology Diagnostic Radiology; ADMIT Internal Medicine Nephrology; ATTEND Internal Medicine Nephrology
PROC: 04CQ3ZZ Extirpation of Matter from Left Anterior Tibial Artery, Percutaneous Approach (ICD-10-PCS; principal; 2020-10-24)
PROC: 04CS3ZZ Extirpation of Matter from Left Posterior Tibial Artery, Percutaneous Approach (ICD-10-PCS; 2020-10-24)
DX: N17.9 Acute kidney failure, unspecified (principal); L03.116 Cellulitis of left lower limb; E11.51 Type 2 diabetes mellitus with diabetic peripheral angiopathy without gangrene; E11.22 Type 2 diabetes mellitus with diabetic chronic kidney disease; I12.9 Hypertensive chronic kidney disease with stage 1 through stage 4 chronic kidney disease, or unspecified chronic kidney disease; N18.9 Chronic kidney disease, unspecified; E27.8 Other specified disorders of adrenal gland; E88.09 Other disorders of plasma-protein metabolism, not elsewhere classified; E87.5 Hyperkalemia; Z86.73 Personal history of transient ischemic attack (TIA), and cerebral infarction without residual deficits

== ENCOUNTER 2020-11-12 17:44 | Inpatient (IN) | payer MEDICARE ==
[~2020-11-12] VITALS: Ht 154.9 cm; Wt 81.6 kg
[~2020-11-12 17:44] MED LIST: AMBIEN10 MG PO; BACLOFEN10 MG PO; BUSPAR 15 MG TA15 MG PO; CLONIDINE HCL0.1 MG PO; CRESTOR10 MG PO; FLOMAX0.4 MG PO; GABAPENTIN100 MG PO; GLIMEPIRIDE2 MG PO; GLIMEPIRIDE4 MG PO; HYDRALAZINE HCL25 MG PO; LIPITOR40 MG PO; LOW DOSE ASPIRI81 M1 PO; METOPROLOL TART50 MG PO; NEPHRO-VITE RX1 TAB PO; NORVASC10 MG PO; OMEPRAZOLE20 M1 PO; PLAVIX75 MG PO; SODIUM BICARBO650 MG PO; ZOLOFT100 MG PO
[2020-11-12 18:47] LABS: BASOPHILS 0.2 % (0-2); EOSINOPHILS 0.3 % (0-7); HEMATOCRIT 32.9 % (36.0-48.0); IMMATURE GRANULOCYTES 0.8 % (0-5); LYMPHOCYTE ABS# 1.27 10x3/uL (1.18-3.74); LYMPHOCYTES 11.2 % (15-50); MCH 28.2 pg (26.0-34.0); MCHC 30.4 g/dL (31.0-37.0); MCV 92.9 fL (80.0-100.0); MEAN PLATELET VOLUME 9.9 fL (7.4-10.4); MONOCYTES 7.3 % (2-11); NEUTROPHIL ABS# 9.08 10x3/uL (1.56-6.13); NEUTROPHILS 80.2 % (40-80); PLATELET COUNT 306 10x3/uL (130-400); RBC 3.54 10x6/uL (4.00-5.40); RDW 15.3 % (11.5-14.5); WBC 11.3 10x3/uL (4.8-10.8)
[2020-11-12 19:02] LABS: APTT 37.4 SECONDS (22.8-39.4); INR 1.18 (0.85-1.17); PROTIME 13.9 SECONDS (11.6-15.0)
[2020-11-12 19:23] LABS: ALBUMIN 3.5 g/dL (3.4-5.0); ALKALINE PHOSPHATASE 79 U/L (30-120); ALT (SGPT) 48 U/L (10-68); CALCIUM 8.4 mg/dL (8.5-10.1); CARBON DIOXIDE 15.3 mmol/L (21.0-32.0); CHLORIDE - SERUM 111 mmol/L (98-107); CKMB 4.8 U/L (0.0-3.6); CREATINE KINASE 65 UL (21-215); CREATININE - SERUM 4.2 mg/dL (0.6-1.3); GLUCOSE 131 mg/dL (74-106); MAGNESIUM - SERUM 2.6 mg/dL (1.8-2.4); PHOSPHOROUS 8.8 mg/dL (2.5-4.9); POTASSIUM - SERUM 5.8 mmol/L (3.5-5.1); PROTEIN - SERUM 7.3 g/dL (6.4-8.2); SODIUM 140 mmol/L (136-145); eGFR NON AFRICAN AMERICAN 11 mL/min (90-120)
[2020-11-12 19:31] LABS: CALC OSMOLALITY 318 mosm/kg (275-300); TROPONIN-I 1.405 ng/mL (0.000-0.060); UREA NITROGEN 120 mg/dL (7-18)
--- NOTE | 2020-11-12 20:45 | NUR ---
PT RECEIVED VIA STRETCHER TO ROOM 210. AWAKE ALERT, DOZING EASILY. ANSWERS APPROPRIATELY. AMBULATED FROM STRETCHER TO ROOM BED. DENIES ANY PAIN AT THIS TIME. PT REPORTS A 40 LB WEIGHT LOSS IN APPROX 3-6 MTHS, AND A 10 LB WEIGHT LOSS IN 1 MTH. SHE DENIES ANY NEEDS AT THIS TIME. CALL LIGHT IN REACH WILL CONTINUE TO MONITOR
[2020-11-12] MEDS ORDERED: FUROSEMIDE20 MG PO (20:52)
[2020-11-12] MEDS ORDERED: CLONIDINE HCL0.1 MG PO (20:54)
[2020-11-12 20:59] VITALS: BMI 34.0
[2020-11-12 21:26] VITALS: BP 100/47
--- NOTE | 2020-11-12 23:27 | NUR ---
PT SOMNOLENT, AROUSES TO VOICE FALLS BACK TO SLEEP QUICKLY VSS, MAGNETIC DOCTOR AT BEDSIDE. MEDS ON HOLD WILL CONTINUE TO MONITOR
[2020-11-13] VITALS: BP 102/42
[2020-11-13 01:42] LABS: CKMB 6.4 U/L (0.0-3.6); CREATINE KINASE 103 UL (21-215)
[2020-11-13 01:43] LABS: TROPONIN-I 1.635 ng/mL (0.000-0.060)
[2020-11-13 04:00] VITALS: BP 94/56
--- NOTE | 2020-11-13 06:05 | NUR ---
pt hypotensive 92/56 manual o2 sat 90% on RA, pt with ongoing SOB and CP, these are not new and were present TOURIST AGENT. troponin 1.6, up from 1.4, serial ekg shows sr with marked sinus arrythmia. notified K Abraham REPLANTING MACHINE OPERATOR orders for 500 cc bolus and to notify cardiology and renal
--- NOTE | 2020-11-13 06:16 | NUR ---
pt hypotension elevated tropnin, ekg changes Dr Tao (upon his call back) and Rachana Tam APN with renal (upon her return call) notified no new orders at this time
[2020-11-13 06:22] LABS: BASOPHILS 0.1 % (0-2); EOSINOPHILS 0.5 % (0-7); HEMATOCRIT 33.1 % (36.0-48.0); HEMOGLOBIN 9.7 g/dL (12-16); IMMATURE GRANULOCYTES 0.6 % (0-5); LYMPHOCYTE ABS# 1.04 10x3/uL (1.18-3.74); LYMPHOCYTES 11.2 % (15-50); MCH 27.5 pg (26.0-34.0); MCHC 29.3 g/dL (31.0-37.0); MCV 93.8 fL (80.0-100.0); MEAN PLATELET VOLUME 10.4 fL (7.4-10.4); MONOCYTES 7.5 % (2-11); NEUTROPHIL ABS# 7.45 10x3/uL (1.56-6.13); NEUTROPHILS 80.1 % (40-80); PLATELET COUNT 338 10x3/uL (130-400); RBC 3.53 10x6/uL (4.00-5.40); RDW 15.7 % (11.5-14.5); WBC 9.3 10x3/uL (4.8-10.8)
[2020-11-13 07:00] VITALS: BP 92/43
[2020-11-13 07:00] LABS: ALBUMIN 3.3 g/dL (3.4-5.0); ALKALINE PHOSPHATASE 72 U/L (30-120); ALT (SGPT) 48 U/L (10-68); BILIRUBIN - TOTAL 0.13 mg/dL (0.2-1.3); CALCIUM 8.1 mg/dL (8.5-10.1); CARBON DIOXIDE 12.5 mmol/L (21.0-32.0); CHLORIDE - SERUM 110 mmol/L (98-107); CKMB 6.8 U/L (0.0-3.6); CREATINE KINASE 106 UL (21-215); CREATININE - SERUM 4.9 mg/dL (0.6-1.3); GLUCOSE 151 mg/dL (74-106); PROTEIN - SERUM 6.9 g/dL (6.4-8.2); SODIUM 139 mmol/L (136-145); eGFR NON AFRICAN AMERICAN 10 mL/min (90-120)
[2020-11-13 07:05] LABS: CALC OSMOLALITY 321 mosm/kg (275-300)
[2020-11-13 07:06] LABS: UREA NITROGEN 127 mg/dL (7-18)
[2020-11-13 07:07] LABS: POTASSIUM - SERUM 6.4 mmol/L (3.5-5.1); TROPONIN-I 1.599 ng/mL (0.000-0.060)
[2020-11-13 08:56] LABS: CKMB 7.2 U/L (0.0-3.6); CREATINE KINASE 123 UL (21-215); TROPONIN-I 1.556 ng/mL (0.000-0.060)
[2020-11-13 11:30] VITALS: BP 96/50
[2020-11-13 12:11] VITALS: Ht 154.9 cm; Wt 81.6 kg
[2020-11-13 12:22] LABS: CALCIUM 7.9 mg/dL (8.5-10.1); CREATININE - SERUM 5.1 mg/dL (0.6-1.3)
[2020-11-13 12:25] LABS: CKMB 7.5 U/L (0.0-3.6); CREATINE KINASE 132 UL (21-215)
[2020-11-13 12:26] LABS: TROPONIN-I 1.388 ng/mL (0.000-0.060)
[2020-11-13 14:00] VITALS: BP 102/48
[2020-11-13 14:42] LABS: CREATINE KINASE 137 UL (21-215)
[2020-11-13 14:44] LABS: TROPONIN-I 1.304 ng/mL (0.000-0.060)
--- NOTE | 2020-11-13 17:50 | NUR ---
PLACED SCDS. EDUCATED ON USE OF IS.
[2020-11-13 20:39] LABS: CKMB 8.5 U/L (0.0-3.6); CREATINE KINASE 142 UL (21-215)
[2020-11-13 22:11] VITALS: BP 150/79
[2020-11-14 02:11] VITALS: BP 113/59
--- NOTE | 2020-11-14 04:19 | NUR ---
PT A/O X4. RR SHALLOW-14. O2-94% 4LNC BP-103/43 TELE-86SR T-98.6. PT COMPLAINS OF INCREASED LETHRAGY, DIZZINESS, BLURRED VISION, PRESSURE CAUSING HER TO "LOSE BREATH", AND WORSENING OVERALL FEELING. PT STATES, "PLEASE FIND OUT WHAT THEY ARE GONNA DO, I CANT TAKE THIS ANYMORE." THIS NURSE HAS BUMPED O2 UP FROM 2L TO 4L TO MAINTAIN O2 ABOVE 92%. CHECKED PT'S BLOOD SUGAR AND IT RETURNED AT 50. GAVE PT APPLE JUICE + 2 SUGAR PACKETS AND ORAL GLUC. PT PAIN LEVEL 5/10 AT THIS TIME. CALL PUT INTO RENAL. BED LOW CALL LIGHT WITHIN REACH. WILL CONTINUE TO MONITOR.
[2020-11-14 04:39] LABS: BASOPHILS 0.2 % (0-2); EOSINOPHILS 0.4 % (0-7); HEMATOCRIT 26.7 % (36.0-48.0); HEMOGLOBIN 8.3 g/dL (12-16); IMMATURE GRANULOCYTES 0.2 % (0-5); LYMPHOCYTE ABS# 0.64 10x3/uL (1.18-3.74); LYMPHOCYTES 6.9 % (15-50); MCH 28.5 pg (26.0-34.0); MCHC 31.1 g/dL (31.0-37.0); MEAN PLATELET VOLUME 10.2 fL (7.4-10.4); MONOCYTES 11.2 % (2-11); NEUTROPHIL ABS# 7.56 10x3/uL (1.56-6.13); NEUTROPHILS 81.1 % (40-80); RBC 2.91 10x6/uL (4.00-5.40); RDW 15.6 % (11.5-14.5); WBC 9.3 10x3/uL (4.8-10.8)
[2020-11-14 04:43] LABS: MCV 91.8 fL (80.0-100.0); PLATELET COUNT 222 10x3/uL (130-400)
--- NOTE | 2020-11-14 04:50 | NUR ---
PT FSBS READS 229. WILL RECHECK.
[2020-11-14 05:00] LABS: ALBUMIN 2.9 g/dL (3.4-5.0); BILIRUBIN - TOTAL 0.11 mg/dL (0.2-1.3); CALCIUM 7.5 mg/dL (8.5-10.1); CREATININE - SERUM 4.7 mg/dL (0.6-1.3); MAGNESIUM - SERUM 2.3 mg/dL (1.8-2.4); PROTEIN - SERUM 6.3 g/dL (6.4-8.2); URIC ACID 7.6 mg/dL (2.6-7.2)
[2020-11-14 05:24] LABS: CARBON DIOXIDE 19.5 mmol/L (21.0-32.0); POTASSIUM - SERUM 4.5 mmol/L (3.5-5.1)
[2020-11-14 05:25] VITALS: BP 116/66
--- NOTE | 2020-11-14 05:42 | NUR ---
RENAL PAGED CONCERNING PT LABS. FSBS RETAKEN 175. WILL CONTINUE TO MONITOR
--- NOTE | 2020-11-14 06:30 | NUR ---
JACEY SOLANO CALLED WITH NEW ORDERS FOR ALVARADO IS MORE THAN 250ML ON BLADDER SCAN, CHEST XRAY, AND DECREASE BICARB TO 75ML/HR. PT STATES SHE HASN'T URINATED SINCE YESTERDAY. WILL CONTINUE TO MONITOR.
--- NOTE | 2020-11-14 07:32 | NUR ---
BLADDER SCANE COMPLETE AT THIS TIME. THIS NURSE GOT 0ML.
[2020-11-14 09:13] LABS: HEPATITIS C ANTIBODY <0.1 (0.0-0.9)
--- NOTE | 2020-11-14 13:31 | OP ---
PATIENT NAME: CASANDRA SAAVEDRA MEDICAL RECORD: [id number] :64 LOCATION:D.M2 D.2105 ADMISSION DATE:11/12/20 SURGEON: JAMEL LUNA MD DATE OF OPERATION: 11/14/2020 PREOPERATIVE DIAGNOSES: 1. Vndkm-ak-hpnlrby kidney disease. 2. Hypertension. 3. Gastroesophageal reflux disease. 4. Diabetes mellitus. 5. Hyperkalemia. POSTOPERATIVE DIAGNOSES: 1. Pjszm-pu-gigtjua kidney disease. 2. Hypertension. 3. Gastroesophageal reflux disease. 4. Diabetes mellitus. 5. Hyperkalemia. PROCEDURES: 1. Right IJ 19 cm HemoSplit catheter placement. 2. Fluoroscopic interpretation. SURGEON: Jamel Luna MD REPORT OF PROCEDURE: The patient's right neck and chest were prepped and draped in sterile fashion. Using ultrasound guidance, a needle was used to cannulate the right internal jugular vein. The guidewire was advanced with ease. Fluoroscopy was used to note that the wire was in good position in the venous system. The skin incision was made on the right lateral chest and the catheter was tunneled between this and the wire exit site. The multiple dilators were placed over the wire followed by the dilator trocar device. The wire and dilators were removed and the catheter tips were advanced through the trocar. The trocar was then removed and the catheter was pulled back until it rested in good position in the superior vena cava. The catheter aspirated nonpulsatile dark blood and flushed easily with heparinized saline. The catheter was sutured into place with 3-0 Prolenes and the skin incisions were closed with 5-0 Monocryl. COMPLICATIONS: None. CONDITION: Stable. ANESTHESIA: General endotracheal. BLOOD LOSS: 30 mL. TRANSINT:[id number] Voice Confirmation ID: [id number] DOCUMENT ID: [id number] OPERATIVE REPORT [id number] KERIRIYACASANDRA JAMEL LUNA MD at 1331 CC: [id number] DICTATION DATE: 11/14/20 1204 ELECTRICAL LINEMAN: 11/14/20 1251 ADM IN [facility] [place] [id number] [place] [address]
--- NOTE | 2020-11-14 15:00 | NUR ---
INFORMED JAM WITH NEPHROLOGY THAT PT URINATED 600 MLS. PT WAS STILL LETHARGIC FROM SEDATION FROM HD CATH PLACEMENT SO SHE URINATED IN A CLEAN BEDPAN WHERE THE URINE SAMPLE WAS COLLECTED. DR. LANCASTER HAD MENTIONED THAT ON A PREVIOUS ADMIT SHE HAD TALC IN HER URINE. NURSE INFORMED JAM THAT THE PATIENT HAD OINTMENT PREVIOUSLY PUT ON HER COCYX THAT COULD HAVE CONTAMINATED THIS SAMPLE WITH TALC. THEREFORE IF IT SHOWS UP IN THIS SAMPLE IT MAY BE INACCURATE. NURSE VERIFIED WITH HD THAT THE PATIENT WAS STILL ON SCHEDULE FOR DIALYSIS AND THEY CONFIRMED THAT WAS THE CASE. WILL CONTINUE TO MONITOR PATIENT CONDITION.
[2020-11-14 15:23] LABS: BILIRUBIN NEGATIVE (NEGATIVE); KETONE NEGATIVE (NEGATIVE); NITRITE NEGATIVE (NEGATIVE); UROBILINOGEN NORMAL mg/dL (< 2)
[2020-11-14 15:24] LABS: BACTERIA MODERATE HPF (NONE SEEN); SQUAMOUS EPITHELIAL 0-5 HPF (0-4); UDS - AMPHET NEGATIVE QUAL (NEGATIVE); UDS - BARB NEGATIVE QUAL (NEGATIVE); UDS - BENZO NEGATIVE QUAL (NEGATIVE); UDS - COCAINE NEGATIVE QUAL (NEGATIVE); UDS - OPIATE POSITIVE QUAL (NEGATIVE); UDS - PCP NEGATIVE QUAL (NEGATIVE); UDS - THC NEGATIVE QUAL (NEGATIVE); WHITE CELLS - URINE 0-5 HPF (0-4)
--- NOTE | 2020-11-14 19:30 | NUR ---
PT BACK IN ROOM FROM DIALYSIS. PT C/O / PAIN IN LEGS. PRN PAIN MEDICATION GIVEN. PATIENT ALERT AND CONFUSED. DISORIENTED TO SITUATION AND TIME. PT SEEMS FORGETFUL. PT REFUSED DINNER. BS WAS WNL. VITALS WNL. PT USED THE BED HAY AND WAS ABLE TO URINATE. PUREWICK PLACED ON PATIENT TO DECREASE PAIN WITH BED HAY. SCDS PLACED ON PATIENT. IV INTACT. TRIALYSIS CATHETER HAS BLOODY DRAINAGE AT INSERTION SITE AND APPEARS TO HAVE BEEN REINFORCED IN DIALYSIS. PT MAKING PHONE CALLS ON CELL PHONE. PT GAVE ME PERMISSION TO SPEAK TO ADRIANA. NO FURTHER NEEDS AT THIS TIME.
[2020-11-14 20:02] LABS: CREATININE - URINE 62.3 mg/dL (30-125); PRO/CRE RATIO URINE 1.1 mg/g; PROTEIN - URINE 68.5 mg/dL (0.0-11.9)
[2020-11-14 21:31] VITALS: BP 142/77
[2020-11-15 01:11] VITALS: BP 108/61
[2020-11-15 05:13] LABS: BASOPHILS 0.2 % (0-2); EOSINOPHILS 0.4 % (0-7); HEMATOCRIT 28.3 % (36.0-48.0); HEMOGLOBIN 8.7 g/dL (12-16); IMMATURE GRANULOCYTES 0.2 % (0-5); LYMPHOCYTE ABS# 1.31 10x3/uL (1.18-3.74); LYMPHOCYTES 14.1 % (15-50); MCH 27.8 pg (26.0-34.0); MCHC 30.7 g/dL (31.0-37.0); MCV 90.4 fL (80.0-100.0); MEAN PLATELET VOLUME 10.3 fL (7.4-10.4); MONOCYTES 11.2 % (2-11); NEUTROPHIL ABS# 6.89 10x3/uL (1.56-6.13); NEUTROPHILS 73.9 % (40-80); PLATELET COUNT 246 10x3/uL (130-400); RBC 3.13 10x6/uL (4.00-5.40); RDW 15.2 % (11.5-14.5); WBC 9.3 10x3/uL (4.8-10.8)
[2020-11-15 05:19] VITALS: BP 141/83
[2020-11-15 05:35] LABS: ALBUMIN 2.7 g/dL (3.4-5.0); ANION GAP 13.9 mmol/L (8-16); BILIRUBIN - TOTAL 0.23 mg/dL (0.2-1.3); MAGNESIUM - SERUM 2.1 mg/dL (1.8-2.4); POTASSIUM - SERUM 4.4 mmol/L (3.5-5.1); PROTEIN - SERUM 6.2 g/dL (6.4-8.2)
[2020-11-15 05:38] LABS: CARBON DIOXIDE 25.5 mmol/L (21.0-32.0); CREATININE - SERUM 3.2 mg/dL (0.6-1.3)
[2020-11-15 07:30] VITALS: BP 113/64
[2020-11-15 10:30] VITALS: BP 114/69
--- NOTE | 2020-11-15 13:35 | NUR ---
I have reviewed this patient and I concur with the Shift Assessment completed by the Licensed Practical Nurse today this shift.
[2020-11-15 15:00] VITALS: BP 130/75
[2020-11-15 21:07] VITALS: BP 162/88
[2020-11-16 01:23] VITALS: BP 175/88
[2020-11-16 05:07] VITALS: BP 157/72
[2020-11-16 06:12] LABS: BASOPHILS 0.2 % (0-2); EOSINOPHILS 1.9 % (0-7); HEMATOCRIT 27.2 % (36.0-48.0); HEMOGLOBIN 8.4 g/dL (12-16); IMMATURE GRANULOCYTES 0.2 % (0-5); LYMPHOCYTE ABS# 1.54 10x3/uL (1.18-3.74); LYMPHOCYTES 17.3 % (15-50); MCH 27.8 pg (26.0-34.0); MCHC 30.9 g/dL (31.0-37.0); MCV 90.1 fL (80.0-100.0); MEAN PLATELET VOLUME 10.1 fL (7.4-10.4); MONOCYTES 14.5 % (2-11); NEUTROPHIL ABS# 5.88 10x3/uL (1.56-6.13); NEUTROPHILS 65.9 % (40-80); PLATELET COUNT 216 10x3/uL (130-400); RBC 3.02 10x6/uL (4.00-5.40); RDW 14.5 % (11.5-14.5); WBC 8.9 10x3/uL (4.8-10.8)
[2020-11-16 06:48] LABS: ALBUMIN 2.5 g/dL (3.4-5.0); ANION GAP 13.7 mmol/L (8-16); BILIRUBIN - TOTAL 0.21 mg/dL (0.2-1.3); CALCIUM 7.9 mg/dL (8.5-10.1); CARBON DIOXIDE 26.7 mmol/L (21.0-32.0); CREATININE - SERUM 2.5 mg/dL (0.6-1.3); MAGNESIUM - SERUM 1.8 mg/dL (1.8-2.4); POTASSIUM - SERUM 4.4 mmol/L (3.5-5.1); PROTEIN - SERUM 5.7 g/dL (6.4-8.2)
--- NOTE | 2020-11-16 07:20 | NUR ---
RECIEVE REPORT. RESTING IN BED WITH EYES CLOSED. NO SIGNS OF DISTRESS. SINUS RHYTHM ON TELEMETRY. CONTINUE PLAN OF CARE AND SAFETY PRECAUTIONS.
[2020-11-16 08:07] VITALS: BP 165/80
--- NOTE | 2020-11-16 14:50 | NUR ---
ALERT AND ORIENTED X4. SITTING UP IN BED. RESPIRATORY AT BEDSIDE EDUCATING ON BIPAP THERAPY. DENIES ANY NEEDS. CONTINUE PLAN OF CARE AND SAFETY PRECAUITONS.
[2020-11-16 15:18] VITALS: BP 150/80
--- NOTE | 2020-11-16 19:58 | NUR ---
RECIEVED UP IN BED WITH EYES OPEN AND TV ON. ALERT AND ORIENTED X4. REMAINS BEDFAST ATHTIS TIME. IV TO LT WRIST SL. TELEMETRY IN PLACE. DENIES ANY NEEDS AT THIS TIME.
[2020-11-16 20:00] VITALS: BP 146/76
[2020-11-17] VITALS: BP 164/84
[2020-11-17 04:00] VITALS: BP 173/87
[2020-11-17 05:28] LABS: BASOPHILS 0.2 % (0-2); EOSINOPHILS 2.1 % (0-7); HEMATOCRIT 28.4 % (36.0-48.0); HEMOGLOBIN 8.7 g/dL (12-16); IMMATURE GRANULOCYTES 0.3 % (0-5); LYMPHOCYTE ABS# 1.24 10x3/uL (1.18-3.74); LYMPHOCYTES 14.3 % (15-50); MCH 27.4 pg (26.0-34.0); MCHC 30.6 g/dL (31.0-37.0); MCV 89.3 fL (80.0-100.0); MEAN PLATELET VOLUME 9.9 fL (7.4-10.4); MONOCYTES 12.6 % (2-11); NEUTROPHIL ABS# 6.13 10x3/uL (1.56-6.13); NEUTROPHILS 70.5 % (40-80); PLATELET COUNT 218 10x3/uL (130-400); RBC 3.18 10x6/uL (4.00-5.40); RDW 14.2 % (11.5-14.5); WBC 8.7 10x3/uL (4.8-10.8)
[2020-11-17 05:35] LABS: APTT 36.1 SECONDS (22.8-39.4); INR 1.1 (0.85-1.17); PROTIME 13.1 SECONDS (11.6-15.0)
[2020-11-17 05:40] LABS: ALBUMIN 2.6 g/dL (3.4-5.0); ANION GAP 10.9 mmol/L (8-16); BILIRUBIN - TOTAL 0.2 mg/dL (0.2-1.3); CALCIUM 8.3 mg/dL (8.5-10.1); CARBON DIOXIDE 29.3 mmol/L (21.0-32.0); MAGNESIUM - SERUM 1.7 mg/dL (1.8-2.4); POTASSIUM - SERUM 4.2 mmol/L (3.5-5.1); PROTEIN - SERUM 6.5 g/dL (6.4-8.2)
--- NOTE | 2020-11-17 07:20 | NUR ---
RECIEVE REPORT. ALERT AND ORIENTED X4. SITTING UP IN BED RECIEVING UPDRAFT TREATMENT. DENIES ANY NEEDS. CONTINUE PLAN OF CARE AND SAFETY PRECAUTIONS.
--- NOTE | 2020-11-17 09:40 | NUR ---
DRESSING TO RIGHT HEMOSPLIT CHANGED DUE TO SOILED AND OLD BLOOD. DATED TODAY.
[2020-11-17 11:00] VITALS: BP 125/70
--- NOTE | 2020-11-17 12:45 | NUR ---
Nutrition Follow-up: POD 3 hemosplit placement. Noted plans for renal biopsy. Has been eating well. HD per renal; last tx was 11/14. Diet: NPO PO intake: 75-100% No new wt; last wt: 180# (11/13) Labs noted: K+ 4.2, BUN 56, Cre 2.0, GFR 27, Glu 148, Ca 8.3, Mg 1.7, Alb 2.6 Meds noted: MagOx, Humalog, Pepcid, Nephrovite, Zofran -RD will follow up within 4 days if pt still admitted.
--- NOTE | 2020-11-17 14:43 | NUR ---
ARRIVES BACK TO ROOM VIA BED FROM RENAL BIOPSY. LT LOWER BACK DRESSING CLEAN DRY INTACT. FREE FROM BLEEDING. FREE FROM HEMATOMA. VITALS STABLE. CONTINUE PLAN OF CARE AND SAFETY PRECAUTIONS.
[2020-11-17 21:59] VITALS: BP 154/73
[2020-11-18 01:20] VITALS: BP 147/87
--- NOTE | 2020-11-18 01:40 | NUR ---
PT A/O X4. NO S/S OF DISTRESS AT THIS TIME. VSS. RR E/U. PT DENIES PAIN AT THIS TIME. PT ALSO REFUSES TO WEAR BIPAP STATING IT MAKES HER CLAUSTROPHOBIC. BWED LOW CALL LIGHT WITHIN REACH. WILL CONTINUE TO MONITOR.
[2020-11-18 04:36] LABS: BASOPHILS 0.3 % (0-2); EOSINOPHILS 2.7 % (0-7); HEMATOCRIT 27.3 % (36.0-48.0); HEMOGLOBIN 8.4 g/dL (12-16); IMMATURE GRANULOCYTES 0.2 % (0-5); LYMPHOCYTE ABS# 1.33 10x3/uL (1.18-3.74); LYMPHOCYTES 12.7 % (15-50); MCH 27.8 pg (26.0-34.0); MCHC 30.8 g/dL (31.0-37.0); MCV 90.4 fL (80.0-100.0); MEAN PLATELET VOLUME 9.9 fL (7.4-10.4); NEUTROPHIL ABS# 7.68 10x3/uL (1.56-6.13); NEUTROPHILS 73.1 % (40-80); PLATELET COUNT 221 10x3/uL (130-400); RBC 3.02 10x6/uL (4.00-5.40); RDW 14.1 % (11.5-14.5); WBC 10.5 10x3/uL (4.8-10.8)
[2020-11-18 04:56] LABS: ALBUMIN 2.6 g/dL (3.4-5.0); ANION GAP 12.5 mmol/L (8-16); BILIRUBIN - TOTAL 0.22 mg/dL (0.2-1.3); CALCIUM 8.7 mg/dL (8.5-10.1); CARBON DIOXIDE 27.7 mmol/L (21.0-32.0); CREATININE - SERUM 1.8 mg/dL (0.6-1.3); MAGNESIUM - SERUM 1.7 mg/dL (1.8-2.4); PHOSPHOROUS 2.6 mg/dL (2.5-4.9); POTASSIUM - SERUM 4.2 mmol/L (3.5-5.1); PROTEIN - SERUM 6.5 g/dL (6.4-8.2)
[2020-11-18 05:20] VITALS: BP 150/76
[2020-11-18 08:00] VITALS: BP 170/91
--- NOTE | 2020-11-18 09:00 | NUR ---
ALERT AND ORIENTED X4. SHOWER AND LINEN CHANGE COMPLETE. 24HR URINE COLLECTION COMPLETE AND TAKEN TO LAB. DENIES ANY NEEDS. CONTINUE PLAN OF CARE AND SAFETY PRECAUTIONS.
[2020-11-18 09:15] LABS: CREATININE - URINE 34.9 mg/dL (30-125)
[2020-11-18 09:22] LABS: CREATININE - SERUM 1.8 mg/dL (0.6-1.3)
[2020-11-18 11:00] VITALS: BP 140/67
--- NOTE | 2020-11-18 16:02 | NUR ---
ALERT AND ORIENTED X4. SITTING UP IN BED. UA COLLECTED AND TAKEN TO LAB. DENIES ANY NEEDS. CONTINUE PLAN OF CARE AND SAFETY PRECAUTIONS. SINUS RHYTHM 68 ON TELEMETRY.
[2020-11-18 16:31] VITALS: BP 157/83
[2020-11-18 16:59] LABS: BILIRUBIN NEGATIVE (NEGATIVE); KETONE NEGATIVE (NEGATIVE); NITRITE POSITIVE (NEGATIVE); UROBILINOGEN NORMAL mg/dL (< 2)
[2020-11-18 17:01] LABS: BACTERIA FEW HPF (NONE SEEN); SQUAMOUS EPITHELIAL 0-5 HPF (0-4); WHITE CELLS - URINE 0-5 HPF (0-4)
[2020-11-18 21:19] VITALS: BP 149/87
[2020-11-19 01:48] VITALS: BP 134/72
--- NOTE | 2020-11-19 05:07 | NUR ---
I have reviewed this patient and I concur with the Shift Assessment completed by the Licensed Practical Nurse today this shift.
[2020-11-19 05:10] LABS: BASOPHILS 0.2 % (0-2); EOSINOPHILS 2.8 % (0-7); HEMATOCRIT 25.1 % (36.0-48.0); HEMOGLOBIN 7.8 g/dL (12-16); IMMATURE GRANULOCYTES 0.2 % (0-5); LYMPHOCYTE ABS# 1.77 10x3/uL (1.18-3.74); LYMPHOCYTES 20.1 % (15-50); MCH 27.8 pg (26.0-34.0); MCHC 31.1 g/dL (31.0-37.0); MCV 89.3 fL (80.0-100.0); MEAN PLATELET VOLUME 9.8 fL (7.4-10.4); MONOCYTES 13.5 % (2-11); NEUTROPHIL ABS# 5.55 10x3/uL (1.56-6.13); NEUTROPHILS 63.2 % (40-80); PLATELET COUNT 221 10x3/uL (130-400); RBC 2.81 10x6/uL (4.00-5.40); RDW 13.8 % (11.5-14.5); WBC 8.8 10x3/uL (4.8-10.8)
[2020-11-19 05:24] LABS: ALBUMIN 2.8 g/dL (3.4-5.0); ANION GAP 10.8 mmol/L (8-16); BILIRUBIN - TOTAL 0.28 mg/dL (0.2-1.3); CALCIUM 8.6 mg/dL (8.5-10.1); CARBON DIOXIDE 29.2 mmol/L (21.0-32.0); CREATININE - SERUM 1.6 mg/dL (0.6-1.3); PHOSPHOROUS 2.7 mg/dL (2.5-4.9); PROTEIN - SERUM 6.5 g/dL (6.4-8.2)
[2020-11-19 05:50] VITALS: BP 153/84
--- NOTE | 2020-11-19 07:05 | NUR ---
PT LYING IN BED. RESP EVEN AND UNLABORED. AAO X4. DENIES NEEDS AT THIS TIME. CLIR. BED IN LOWEST POSITION. SIDE RAILS X2
[2020-11-19 08:09] VITALS: BP 161/97
--- NOTE | 2020-11-19 13:28 | NUR ---
I have reviewed this patient and I concur with the Shift Assessment completed by the Licensed Practical Nurse today this shift.
--- NOTE | 2020-11-19 13:29 | NUR ---
I have reviewed this patient and I concur with the Shift Assessment completed by the Licensed Practical Nurse today this shift.
--- NOTE | 2020-11-19 16:02 | MORECARE ---
CASE MANAGEMENT DISCHARGE SUMMARY PATIENT: CASANDRA SAAVEDRA UNIT: [id number] ADM DATE: 11/12/20 AGE: 60 : 64 SEX: F ROOM/BED: D.2100 AUTHOR: ABRIL,DOC PHYSICIAN: REFERRING PHYSICIAN: GINI AGUILAR MD DATE OF SERVICE: 11/19/20 Case Management Discharge Planning Summary COMMENTS ENTERED DATE: 11/14/20 13:50 CT COMMENT TYPE: Discharge Planning REVIEWER: Jessica Levi CM notified Anabell that patient is starting HD and she will follow course. DCP REVIEW SUMMARY ANTICIPATED D/C DATE: EXPECTED LOS : CASE STATUS: DCP Initiated INITIAL REVIEW: 11/12/2020 INITIAL REVIEWER: Jessica Levi FINAL DISCHARGE DISPOSITION: : FINAL REVIEWER: FINAL REVIEW DATE: DCP Focus Questions & Answers DCP Screen QUESTION: ANSWER High Risk Factors: : Readmission within past 30 days DCP Evaluation QUESTION: ANSWER Patient's ability to cope with chronic illness : d. No chronic illness Would patient like to participate in any Care Coordination programs (if applicable): : Not applicable Mental health screen: : No mental health history DCP Re-evaluation QUESTION: ANSWER Would patient like to participate in any Care Coordination programs (if applicable): : Not applicable PATIENT: CASANDRA SAAVEDRA ENCOUNTER: [id number] MEDICAL RECORD#: [id number] ADMISSION DATE: 11/12/2020 DISCHARGE DATE: ATTENDING MD: GINI DEAN : AGE: 60 MARITAL STATUS: X DC PLAN ID: [id number] FACILITY: [facility] PRINTED ON: 11/19/20 16:02 CT All edits/amendments must be made on the electronic document DICTATION DATE: 11/19/20 160 HYDROGEOLOGY PROFESSOR: DM 11/19/20 160 RPT#: [id number] DC DATE: STATUS: ADM IN [facility] [address] [place] [address] END OF REPORT
[2020-11-19 16:15] VITALS: BP 145/83
--- NOTE | 2020-11-19 16:17 | MORECARE ---
CASE MANAGEMENT DISCHARGE SUMMARY PATIENT: CASANDRA SAAVEDRA UNIT: [id number] ADM DATE: 11/12/20 AGE: 60 : 64 SEX: F ROOM/BED: D.2106 AUTHOR: ABRILDOC PHYSICIAN: REFERRING PHYSICIAN: GINI AGUILAR MD DATE OF SERVICE: 11/19/20 Case Management Discharge Planning Summary COMMENTS ENTERED DATE: 11/14/20 13:50 CT COMMENT TYPE: Discharge Planning REVIEWER: Jessica Levi CM notified Anabell that patient is starting HD and she will follow course. DCP REVIEW SUMMARY ANTICIPATED D/C DATE: EXPECTED LOS : CASE STATUS: DCP Initiated INITIAL REVIEW: 11/12/2020 INITIAL REVIEWER: Jessica eLvi FINAL DISCHARGE DISPOSITION: : FINAL REVIEWER: FINAL REVIEW DATE: DCP Focus Questions & Answers DCP Screen QUESTION: ANSWER High Risk Factors: : Readmission within past 30 days DCP Evaluation QUESTION: ANSWER Patient and/or caregiver agree upon recommended discharge plan? : Yes Family / Caregiver's ability to cope with chronic illness: : a. Adequate (ability to meet patient's medical needs, ensures patient attends medical appts.) Patient's current cognitive status: : *Oriented to person, place, situation, time and present Patient gives permission to discuss discharge plans with: (name, relationship and number) : Meagan Trejo [facility] - [phone] Patient's ability to cope with chronic illness : b. Minimal (2 - 3 ED visits in 6 mos., limited financial resources, occasionally misses appts.) Does the patient have the ability to pay for or attain post discharge needs / services? : Yes Functional screen assessment: : Basic needs can adequately be met by self Family / Caregiver's ability to cope with chronic illness: : a. Adequate (ability to meet patient's medical needs, ensures patient attends medical appts.) Physical Status: : Partial care dependence Equipment needed for post hospitalization: : Walker - Rolling Living Arrangements: : Home Alone with Support Partial Dependence, assistance required for: : Ambulation / Mobility Results of this evaluation have been discussed with: : Patient Patient with capacity for self-care or can be cared for in same environment as prior to hospitalization? : Yes Baseline cognitive status: : *Oriented to person, place, situation, time and present Physical environment modification needed / anticipated for discharge: : No Medication Management: : Patient states can afford medications Pharmacy name(s): : [facility] Does Patient have transportation to get home and to follow-up medical appointments when discharged from the hospital? : Yes Comments: : States her son in law will transport her home Would patient like to participate in any Care Coordination programs (if applicable): : Not applicable Equipment in use: : Cane - Single Leg Mental health screen: : No mental health history Abuse/Neglect: : None Resources / Services in place: : None DCP Re-evaluation QUESTION: ANSWER Would patient like to participate in any Care Coordination programs (if applicable): : Not applicable PATIENT: CASANDRA SAAVEDRA ENCOUNTER: [id number] MEDICAL RECORD#: [id number] ADMISSION DATE: 11/12/2020 DISCHARGE DATE: ATTENDING MD: GINI DEAN : AGE: 60 MARITAL STATUS: X DC PLAN ID: [id number] FACILITY: [facility] PRINTED ON: 11/19/20 16:17 CT All edits/amendments must be made on the electronic document DICTATION DATE: 11/19/201616 PER DIEM CLERK: JULIO CESAR 11/19/201616 RPT#: [id number] DC DATE: STATUS: ADM IN [facility] [address] [place] [address] END OF REPORT
--- NOTE | 2020-11-19 16:28 | MORECARE ---
CASE MANAGEMENT DISCHARGE SUMMARY PATIENT: CASANDRA SAAVEDRA UNIT: [id number] ADM DATE: 11/12/20 AGE: 60 : 64 SEX: F ROOM/BED: D.2101 AUTHOR: ABRIL,DOC PHYSICIAN: REFERRING PHYSICIAN: GINI AGUILAR MD DATE OF SERVICE: 11/19/20 Case Management Discharge Planning Summary COMMENTS ENTERED DATE: 11/19/20 16:10 CT COMMENT TYPE: Discharge Planning REVIEWER: Jessica Levi DC PLAN: HOME ANTICIPATED DC NEEDS: 2 WHEELED WALKER ORDERED FROM [facility] CM met with patient to complete initial dc planning assessment. CM educated patient on the CM role and verbal consent given by patient to complete assessment. CM verified patient's address, phone number, and emergency contact phone numbers. Patient lives at home alone. She states she is independent with her ADL's and AIDL's. At discharge patient plans to return and feels this is a safe discharge. CM discussed availability of home health, rehab services, and medical equipment. Patient states she has been using a 2 wheeled walker here and would like to have a walker, [facility] for [facility] received. I called and spoke with Rose at [facility] and order faxed. Transportation provider at discharge will be her son in law. CM instructed on [facility] CM will continue to follow and will assist as needed with dc plans/needs. ENTERED DATE: 11/14/20 13:50 CT COMMENT TYPE: Discharge Planning REVIEWER: Jessica Levi CM notified Anabell that patient is starting HD and she will follow course. DCP REVIEW SUMMARY ANTICIPATED D/C DATE: EXPECTED LOS : CASE STATUS: DCP Initiated INITIAL REVIEW: 11/12/2020 INITIAL REVIEWER: Jessica Levi FINAL DISCHARGE DISPOSITION: : FINAL REVIEWER: FINAL REVIEW DATE: DCP Focus Questions & Answers DCP Screen QUESTION: ANSWER High Risk Factors: : Readmission within past 30 days DCP Evaluation QUESTION: ANSWER Patient and/or caregiver agree upon recommended discharge plan? : Yes Family / Caregiver's ability to cope with chronic illness: : a. Adequate (ability to meet patient's medical needs, ensures patient attends medical appts.) Patient's current cognitive status: : *Oriented to person, place, situation, time and present Patient gives permission to discuss discharge plans with: (name, relationship and number) : Meagan Trejo - [facility] - [phone] Patient's ability to cope with chronic illness : b. Minimal (2 - 3 ED visits in 6 mos., limited financial resources, occasionally misses appts.) Does the patient have the ability to pay for or attain post discharge needs / services? : Yes Functional screen assessment: : Basic needs can adequately be met by self Family / Caregiver's ability to cope with chronic illness: : a. Adequate (ability to meet patient's medical needs, ensures patient attends medical appts.) Physical Status: : Partial care dependence Equipment needed for post hospitalization: : Walker - Rolling Living Arrangements: : Home Alone with Support Partial Dependence, assistance required for: : Ambulation / Mobility Results of this evaluation have been discussed with: : Patient Patient with capacity for self-care or can be cared for in same environment as prior to hospitalization? : Yes Baseline cognitive status: : *Oriented to person, place, situation, time and present Physical environment modification needed / anticipated for discharge: : No Medication Management: : Patient states can afford medications Pharmacy name(s): : [facility] in [facility] Does Patient have transportation to get home and to follow-up medical appointments when discharged from the hospital? : Yes Comments: : States her son in law will transport her home Would patient like to participate in any Care Coordination programs (if applicable): : Not applicable Equipment in use: : Cane - Single Leg Mental health screen: : No mental health history Abuse/Neglect: : None Resources / Services in place: : None DCP Re-evaluation QUESTION: ANSWER Would patient like to participate in any Care Coordination programs (if applicable): : Not applicable PATIENT: CASANDRA SAAVEDRA ENCOUNTER: [id number] MEDICAL RECORD#: [id number] ADMISSION DATE: 11/12/2020 DISCHARGE DATE: ATTENDING MD: GINI DEAN : AGE: 60 MARITAL STATUS: X DC PLAN ID: [id number] FACILITY: [facility] PRINTED ON: 11/19/20 16:27 CT All edits/amendments must be made on the electronic document DICTATION DATE: 11/19/201626 AUDIENCE DEVELOPMENT MANAGER: JULIO CESAR 11/19/201626 RPT#: [id number] DC DATE: STATUS: ADM IN [facility] [address] [place] [address] END OF REPORT
[2020-11-19 19:46] VITALS: BP 156/92
--- NOTE | 2020-11-19 23:17 | NUR ---
1944-- PT UP IN ROOM. DR PITT IN WITH PT, DISCUSSED HER KIDNEY BIOPSY RESULTS. PLEASANT & COOPERATIVE
[2020-11-19 23:25] VITALS: BP 113/71
[2020-11-20 05:09] VITALS: BP 142/83
--- NOTE | 2020-11-20 05:30 | NUR ---
PT UP IN ROOM. C/O HAVING A MILD HEADACHE, MEDICATED ORDERED WITH TYLENOL. PT IS PLEASANT & COOPERATIVE. WILL CONTINUE TO MONITOR.
[2020-11-20 07:05] LABS: BASOPHILS 0.4 % (0-2); EOSINOPHILS 2.7 % (0-7); HEMATOCRIT 25.1 % (36.0-48.0); HEMOGLOBIN 7.7 g/dL (12-16); IMMATURE GRANULOCYTES 0.3 % (0-5); LYMPHOCYTE ABS# 1.52 10x3/uL (1.18-3.74); LYMPHOCYTES 16.6 % (15-50); MCH 27.6 pg (26.0-34.0); MCHC 30.7 g/dL (31.0-37.0); MEAN PLATELET VOLUME 9.6 fL (7.4-10.4); MONOCYTES 10.2 % (2-11); NEUTROPHIL ABS# 6.37 10x3/uL (1.56-6.13); NEUTROPHILS 69.8 % (40-80); PLATELET COUNT 214 10x3/uL (130-400); RBC 2.79 10x6/uL (4.00-5.40); RDW 13.7 % (11.5-14.5); WBC 9.1 10x3/uL (4.8-10.8)
--- NOTE | 2020-11-20 07:13 | NUR ---
RECEIVE SHIFT REPORT. RESTING IN BED. DENIES ANY NEEDS AT THIS TIME. CALL LIGHT IN REACH. WILL CONTINUE POC AND SAFETY PRECAUTIONS.
[2020-11-20 07:33] LABS: ALBUMIN 2.7 g/dL (3.4-5.0); ANION GAP 11.1 mmol/L (8-16); BILIRUBIN - TOTAL 0.33 mg/dL (0.2-1.3); CALCIUM 8.6 mg/dL (8.5-10.1); CARBON DIOXIDE 28.9 mmol/L (21.0-32.0); CREATININE - SERUM 1.7 mg/dL (0.6-1.3); PROTEIN - SERUM 6.5 g/dL (6.4-8.2)
[2020-11-20 07:36] LABS: PHOSPHOROUS 3.4 mg/dL (2.5-4.9)
[2020-11-20 08:00] VITALS: BP 159/92
--- NOTE | 2020-11-20 08:31 | NUR ---
BACK FROM COLONOSCOPY. NO SIGNS OF ACTIVE BLEEDING. NO NEW ORDERS. WILL CONTINUE POC AND SAFETY PRECAUTIONS.
[2020-11-20] MEDS ORDERED: HYDRALAZINE HCL50 MG PO (10:16)
[2020-11-20] MEDS ORDERED: ZOLOFT50 MG PO (10:17)
[2020-11-20] MEDS ORDERED: PHENAZOPYRIDIN100 MG PO (10:18)
[2020-11-20] MEDS ORDERED: NYSTATIN1 PWD TOPICAL (10:18)
--- NOTE | 2020-11-20 11:03 | NUR ---
Nutrition Reassessment/Follow-up: Eating well. Noted plans to d/c today. Diet: Renal No new wt; last wt: 180# (11/13) Labs noted: BUN 28, Cre 1.7, GFR 33, K+ 4.0, Glu 116, PO4 3.4, Alb 2.7 Meds noted: MagOx, Humalog, Pepcid, Nephrovite -Nutrition needs unchanged from initial assessment; no new wt available. -RD will follow up within 7 days if pt still admitted.
[2020-11-20 11:07] VITALS: BP 146/87
--- NOTE | 2020-11-20 12:45 | NUR ---
D/C LEFT HAND IV, TIP INTACT.STUDENT CHANGED HEMOSPLIT DRESSING. D/C INSTRUCTIONS GIVEN VERBALLY AND HANDOUTS PROVIDED. WILL TAKE DOWN TO ENTRANCE VIA WHEELCHAIR.
--- NOTE | 2020-11-22 15:24 | EC ---
PATIENT:CASANDRA SAAVEDRA DATE OF SERVICE: 11/12/20 SEX: F MEDICAL RECORD: [id number] DATE OF : 64 LOCATION:D.M2 D.210 AGE OF PATIENT: 60 ADMISSION DATE: 11/12/20 REFERRING PHYSICIAN: INTERPRETING PHYSICIAN: NEGIN SALMERON MD ECHOCARDIOGRAM REPORT ECHO CHARGES 5 ECHO LIMITED Date: 11/13/20 CLINICAL DIAGNOSIS: ELEVATED TROP ECHOCARDIOGRAPHIC MEASUREMENTS (adult normal given) AC root (d.<3.7cm) 0 cm LV Septum d (<1.2 cm> 0 cm Valve Excursion 0 cm LV Septum (systole) cm Left Atria (s.<4.0cm> 0 cm LVPW d(<1.2cm) 0 cm RV (d.<2.3cm) 0 cm LVPW (sytole) 0 cm LV diastole(<5.6CM) 0 cm MV E-F(>70mm/sec) 0 cm LV systole 0 cm LVOT Diameter 0 cm MV exc.(>10mm) 0 cm Est.ejection fraction (50-75%) % DOPPLER: LVIT cm/sec A 0 cm/sec E 0 cm/sec LA 0 cm/sec RVSP 0 mmHg LVOT 0 cm/sec AOP1/2T 0 m/s Asc. Ao 0 cm/sec RVOT 0 cm/sec RA 0 cm/sec PA 0 cm/sec AV Gradient Peak 0 mmHg AV Mean 0 mmHg AV Area 0 cm MV Gradient Peak 0 mmHg MV Mean 0 mmHg MV Area 0 cm COMMENTS: Immunologist: Alize HARVEY Commercial Specialist: Alize Salmeron TAPE# Pericardial Effusion N DATE OF SERVICE: CLINICAL DIAGNOSIS: Elevated troponin. INTERPRETATION: Limited echocardiogram. Overall, normal left ventricular chamber size and contractile function, ejection fraction 55% to 60%. FINDINGS: Left atrial chamber appears normal. Right atrium and right ventricular chamber size and function appears normal. Aortic valve appears normal. No aortic regurgitation or stenosis. Mitral valve appears normal. No ECHOCARDIOGRAM REPORT [id number] CASANDRA SAAVEDRA mitral regurgitation. Tricuspid valve appears normal. Trace tricuspid regurgitation. Pulmonic valve appears normal. No pulmonic regurgitation. No pericardial effusion visualized. IMPRESSION: Normal left ventricular chamber size and contractile function with an ejection fraction of 55% to 60%. TRANSINT:[id number] Voice Confirmation ID: [id number] DOCUMENT ID: [id number] NEGIN SALMERON MD at 1524 CC: [id number] DICTATION DATE: 11/13/20 1546 JOB FOREMAN: 11/13/202029 DIS IN 11/20/20 [id number] [place] [address]
--- NOTE | 2020-11-22 15:32 | MORECARE ---
CASE MANAGEMENT DISCHARGE SUMMARY PATIENT: CASANDRA SAAVEDRA UNIT: [id number] ADM DATE: 11/12/20 AGE: 60 : 64 SEX: F ROOM/BED: D.2105 AUTHOR: ABRIL,DOC PHYSICIAN: REFERRING PHYSICIAN: GINI AGUILAR MD DATE OF SERVICE: 11/22/20 Case Management Discharge Planning Summary COMMENTS ENTERED DATE: 11/19/20 16:10 CT COMMENT TYPE: Discharge Planning REVIEWER: Jessica Levi DC PLAN: HOME ANTICIPATED DC NEEDS: 2 WHEELED WALKER ORDERED FROM [facility] CM met with patient to complete initial dc planning assessment. CM educated patient on the CM role and verbal consent given by patient to complete assessment. CM verified patient's address, phone number, and emergency contact phone numbers. Patient lives at home alone. She states she is independent with her ADL's and AIDL's. At discharge patient plans to return and feels this is a safe discharge. CM discussed availability of home health, rehab services, and medical equipment. Patient states she has been using a 2 wheeled walker here and would like to have a walker, [facility] for [facility] received. I called and spoke with Rose at [facility] and order faxed. Transportation provider at discharge will be her son in law. CM instructed on [facility] CM will continue to follow and will assist as needed with dc plans/needs. ENTERED DATE: 11/14/20 13:50 CT COMMENT TYPE: Discharge Planning REVIEWER: Jessica Levi CM notified Anabell that patient is starting HD and she will follow course. DCP REVIEW SUMMARY ANTICIPATED D/C DATE: EXPECTED LOS : CASE STATUS: DCP Initiated INITIAL REVIEW: 11/12/2020 INITIAL REVIEWER: Jessica Levi FINAL DISCHARGE DISPOSITION: : FINAL REVIEWER: FINAL REVIEW DATE: DCP Focus Questions & Answers DCP Screen QUESTION: ANSWER High Risk Factors: : Readmission within past 30 days DCP Evaluation QUESTION: ANSWER Patient's ability to cope with chronic illness : b. Minimal (2 - 3 ED visits in 6 mos., limited financial resources, occasionally misses appts.) Patient gives permission to discuss discharge plans with: (name, relationship and number) : Meagan Trejo - DTR - [phone] Patient's current cognitive status: : *Oriented to person, place, situation, time and present Family / Caregiver's ability to cope with chronic illness: : a. Adequate (ability to meet patient's medical needs, ensures patient attends medical appts.) Patient and/or caregiver agree upon recommended discharge plan? : Yes Physical Status: : Partial care dependence Family / Caregiver's ability to cope with chronic illness: : a. Adequate (ability to meet patient's medical needs, ensures patient attends medical appts.) Functional screen assessment: : Basic needs can adequately be met by self Does the patient have the ability to pay for or attain post discharge needs / services? : Yes Partial Dependence, assistance required for: : Ambulation / Mobility Living Arrangements: : Home Alone with Support Equipment needed for post hospitalization: : Walker - Rolling Baseline cognitive status: : *Oriented to person, place, situation, time and present Patient with capacity for self-care or can be cared for in same environment as prior to hospitalization? : Yes Results of this evaluation have been discussed with: : Patient Physical environment modification needed / anticipated for discharge: : No Medication Management: : Patient states can afford medications Pharmacy name(s): : [facility] in [facility] Does Patient have transportation to get home and to follow-up medical appointments when discharged from the hospital? : Yes Would patient like to participate in any Care Coordination programs (if applicable): : Not applicable Comments: : States her son in law will transport her home Equipment in use: : Cane - Single Leg Mental health screen: : No mental health history Abuse/Neglect: : None Resources / Services in place: : None DCP Re-evaluation QUESTION: ANSWER Would patient like to participate in any Care Coordination programs (if applicable): : Not applicable PATIENT: CASANDRA SAAVEDRA ENCOUNTER: [id number] MEDICAL RECORD#: [id number] ADMISSION DATE: 11/12/2020 DISCHARGE DATE: 11/20/2020 ATTENDING MD: GINI DEAN : AGE: 60 MARITAL STATUS: X DC PLAN ID: [id number] FACILITY: [facility] PRINTED ON: 11/22/20 15:32 CT All edits/amendments must be made on the electronic document DICTATION DATE: 11/22/201531 NETSUITE CONSULTANT: JULIO CESAR 11/22/201531 RPT#: [id number] DC DATE:11/20/20 STATUS: DIS IN [facility] [address] [place] [address] END OF REPORT
[2020-11-23 13:08] LABS: CORTISOL FREE - UR 46 ug/L (Undefined)
== END 2020-11-20 12:58 | disposition home or self-care (01) | DRG 682 ==
LOC: D.ER 17:44 → D.M2 19:22
PROVIDERS: Emergency Medicine; Family Medicine; Internal Medicine Nephrology; Radiology Diagnostic Radiology; Surgery; ADMIT Family Medicine; ATTEND Family Medicine
PROC: 05HM33Z Insertion of Infusion Device into Right Internal Jugular Vein, Percutaneous Approach (ICD-10-PCS; principal; 2020-11-14 11:00)
PROC: 0TB13ZX Excision of Left Kidney, Percutaneous Approach, Diagnostic (ICD-10-PCS; 2020-11-17)
DX: N17.9 Acute kidney failure, unspecified (principal); E43 Unspecified severe protein-calorie malnutrition; E11.22 Type 2 diabetes mellitus with diabetic chronic kidney disease; I12.9 Hypertensive chronic kidney disease with stage 1 through stage 4 chronic kidney disease, or unspecified chronic kidney disease; N18.4 Chronic kidney disease, stage 4 (severe); E87.5 Hyperkalemia; Z86.73 Personal history of transient ischemic attack (TIA), and cerebral infarction without residual deficits; Z68.34 Body mass index [BMI] 34.0-34.9, adult